=== PATIENT | female | born 1955 | race Caucasian/White ===

== ENCOUNTER 2020-05-25 14:47 | Outpatient (CLI) | payer MEDICARE, SELFPAY ==
--- NOTE | ~2020-05-25 | XR_ITS ---
EXAMINATION: XR abdomen/kub 1V INDICATION: Nephrolithiasis TECHNIQUE: Supine views of the abdomen were obtained on 2 radiographs. COMPARISON: 05/19/2019 FINDINGS: No definite urinary tract calculi are identified. There are phleboliths of the pelvis. The bowel gas pattern is normal. Surgical clips project in the right abdomen. IMPRESSION: 1. No definite urinary tract calculi identified. Reviewed, dictated and finalized at location A.
== END 2020-05-25 14:48 | disposition home or self-care (01) ==
PROVIDERS: PCP Physician Assistant; Visit Provider Physician Assistant
DX: N20.0 Calculus of kidney (principal)
CPT/HCPCS: 74018

== ENCOUNTER 2020-12-11 09:42 | Outpatient (CLI) | payer MEDICARE, SELFPAY ==
--- NOTE | ~2020-12-11 | DEXA_ITS ---
Bone Density Report Name: Jutsine Osborne Age: 65 Sex: Female Ethnicity: White Date of : 1955 Indication: osteopenia; height loss; hysterectomy; Referring Provider: JOSH, ELINA Study: Bone densitometry was performed. Exam Date: December 11, 2020 Accession number: [id number] Bone Density: Region BMD T-score Z-score Classification AP Spine (L1, L2, L4) 0.873 -1.5 0.4 Osteopenia Femoral Neck (Left) 0.708 -1.3 0.4 Osteopenia Total Hip (Left) 0.896 -0.4 1.0 Normal Total Hip Bilateral Avg 0.885 -0.5 0.9 Normal Femoral Neck (Right) 0.654 -1.8 -0.1 Osteopenia Total Hip (Right) 0.873 -0.6 0.8 Normal World Health Organization criteria for BMD impression classify patients as: Normal (T-score at or above -1.0), Osteopenia (T-score between -1.0 and -2.5), or Osteoporosis (T-score at or below -2.5). 10-year Fracture Risk(1): Major Osteoporotic Fracture 9.6% Hip Fracture 1.3% Reported Risk Factors: [place] (), Neck BMD=0.654, BMI=32.7 (1) FRAX(R) Version 3.08. Fracture probability calculated for an untreated patient. Fracture probability may be lower if the patient has received treatment. Previous Exams: Region Exam Age BMD T-score BMD Change BMD Change Date g/cm2 vs Baseline vs Previous AP Spine(L1, L2, L4) 12/11/2020 65 0.873 -1.5 0.047(5.7%)# 0.002(0.2%) 10/05/2016 61 0.871 -1.5 0.045(5.5%)# -0.022(-2.4%)# 12/29/2010 55 0.893 -1.3 0.067(8.1%)* -0.053(-5.6%)* 04/11/2008 52 0.946 -0.8 0.120(14.5%)* 0.058(6.6%)* 02/15/2006 50 0.888 -1.3 0.061(7.4%)* 0.061(7.4%)* 01/28/2004 48 0.826 -1.9 Total Hip(Left) 12/11/2020 65 0.896 -0.4 0.061(7.3%)# 0.006(0.7%) 10/05/2016 61 0.890 -0.4 0.055(6.6%)# 0.035(4.1%)# 12/29/2010 55 0.855 -0.7 0.020(2.4%) -0.003(-0.3%) 04/11/2008 52 0.858 -0.7 0.023(2.7%) 0.016(1.9%) 02/15/2006 50 0.842 -0.8 0.006(0.8%) 0.006(0.8%) 01/28/2004 48 0.835 -0.9 Total Hip(Right) 12/11/2020 65 0.873 -0.6 0.093(12.0%)# 0.041(4.9%)* 10/05/2016 61 0.832 -0.9 0.052(6.7%)# -0.014(-1.6%)# 12/29/2010 55 0.845 -0.8 0.066(8.5%)* 0.010(1.2%) 04/11/2008 52 0.836 -0.9 0.056(7.2%)* 0.024(2.9%) 02/15/2006 50 0.812 -1.1 0.033(4.2%)* 0.033(4.2%)* 01/28/2004 48 0.780 -1.3 *Denotes significance at 95% confidence level, LSC for AP Spine = 0.022 g/cm2, LSC for Total Hip = 0.027 g/cm2 Clinical Information Provided by Patient:
--- NOTE | ~2020-12-11 | MM_ITS ---
EXAMINATION: MM screening [facility] BI w amberly HISTORY: Screening mammogram TECHNIQUE: Craniocaudal and mediolateral oblique 3-D tomosynthesis images were obtained and synthetic 2-D images were generated. CAD analysis was submitted and interpreted. COMPARISON: 11/11/2019, 10/30/2018, 10/24/2017 bilateral digital screening mammogram examinations BREAST PARENCHYMAL COMPOSITION: There are scattered areas of fibroglandular density. FINDINGS: A pacemaker device obscures a portion of the left axillary tail. There is no evidence of pierce spicious mass, calcification, or architectural distortion to suggest malignancy in either breast. The re has been no suspicious interval change. IMPRESSION: 1. No mammographic evidence of malignancy. 2. Recommend routine screening mammography in one year. BI-RADS Category 1: Negative Reviewed, dictated and finalized at location A. OR SVP
== END 2020-12-11 09:43 | disposition home or self-care (01) ==
LOC: ANHIMG 09:49
PROVIDERS: PCP Physician Assistant; Visit Provider Physician Assistant
DX: Z12.31 Encounter for screening mammogram for malignant neoplasm of breast (principal); Z78.0 Asymptomatic menopausal state; M85.88 Other specified disorders of bone density and structure, other site; M85.852 Other specified disorders of bone density and structure, left thigh; M85.851 Other specified disorders of bone density and structure, right thigh
CPT/HCPCS: 77063; 77067; 77080

== ENCOUNTER 2022-05-03 09:32 | Outpatient (CLI) | payer MEDICARE, SELFPAY ==
--- NOTE | ~2022-05-03 | MM_ITS ---
EXAMINATION: MM screening [facility] BI w amberly HISTORY: Screening mammogram TECHNIQUE: Craniocaudal and mediolateral oblique 3-D tomosynthesis images were obtained and synthetic 2-D images were generated. CAD analysis was submitted and interpreted. COMPARISON: 12/11/2020, 11/01/2019, 10/30/2018 BREAST PARENCHYMAL COMPOSITION: There are scattered areas of fibroglandular density. FINDINGS: There is no suspicious mass, calcification, or architectural distortion to suggest malignan cy in either breast. There has been no suspicious interval change. IMPRESSION: 1. No mammographic evidence of malignancy. 2. Recommend routine screening mammography in one year. BI-RADS Category 1: Negative Reviewed, dictated and finalized at location A.
== END 2022-05-03 09:33 | disposition home or self-care (01) ==
LOC: ANHIMG 09:35
PROVIDERS: PCP Physician Assistant; Visit Provider Family Medicine
DX: Z12.31 Encounter for screening mammogram for malignant neoplasm of breast (principal)
CPT/HCPCS: 77063; 77067

== ENCOUNTER 2024-04-16 19:20 | Emergency (ER) | payer MEDICARE, SELFPAY ==
[2024-04-16 19:20] VITALS: BP 107/66; PULSE 74; RESP 18; TEMP 36.7; O2SAT 98
[2024-04-16 19:35] VITALS: BP 99/47; PULSE 72; RESP 29; TEMP 36.6; O2SAT 98
[2024-04-16 19:48] LABS: Basophils Percent Auto 0.4 % (0.2-1.2); Eosinophils Absolute Auto 0.1 K/mm3 (0-0.3); Eosinophils Percent Auto 0.8 % (0-4.4); Hemoglobin 12.2 g/dL (12.0-15.0); Immature Granulocyte Absolute 0.02 K/mm3 (0.00-0.031); Immature Granulocyte Percent A 0.3 % (0-0.5); Lymphocytes Absolute Auto 1.55 K/mm3 (0.9-3.2); Lymphocytes Percent Auto 20.7 % (18.3-44.2); Mean Corpuscular Hemoglobin 31.2 pg (26-34); Mean Corpuscular Volume 94.6 fl (80-100); Mean Platelet Volume 9.6 fl (7.4-10.4); Monocytes Absolute Auto 0.7 K/mm3 (0.1-0.6); Monocytes Percent Auto 9.4 % (2.6-8.5); Neutrophils Absolute Auto 5.1 K/mm3 (1.3-6.7); Neutrophils Percent Auto 68.4 % (45.5-73.1); Platelet Count Result 286 k/mm3 (150-375); Red Blood Count 3.91 M/mm3 (4.2-5.4); Red Cell Distribution Width 11.2 % (11.5-14.5); White Blood Count 7.5 K/mm3 (4.5-10.0)
[2024-04-16 19:58] LABS: Alanine Aminotransferase 35 U/L (6-35); Albumin Level 4.1 g/dL (3.5-5.1); Alkaline Phosphatase 130 U/L (38-126); Anion Gap 9 mmol/L (4-12); Aspartate Amino Transferase 40 U/L (14-36); Bilirubin,Total 1.1 mg/dL (0.2-1.3); Blood Urea Nitrogen 29 mg/dL (7-17); Calcium 10.5 mg/dL (8.4-10.2); Carbon Dioxide 24 mmol/L (22-30); Chloride 104 mmol/L (98-107); Estimated CRCL calculation 39 ml/min; Estimated Glomerular Filt Rate 49; Glucose 159 mg/dL (65-110); Potassium 4.4 mmol/L (3.4-5.0); Sodium 137 mmol/L (137-145)
[2024-04-16 19:58] LABS: Lactic Acid Reflex 1.6 mmol/L (0.7-2.0)
[2024-04-16 19:59] LABS: INR 1.3; Prothrombin Time 16.6 Seconds (11.1-14.7)
[2024-04-16 20:00] LABS: Partial Thromboplastin Time 45.3 Seconds (22.3-36.8)
[2024-04-16 20:36] LABS: Thyroid Stimulating Hormone Reflex < 0.015 uIU/mL (0.465-4.68)
--- NOTE | 2024-04-16 20:48 | ED.RECABL ---
HPI - Recheck/Abnormal Lab/Rx General Chief Complaint: Recheck/Abnormal Lab/Rx Stated Complaint: thyroid issues Time Seen by Provider: 04/16/24 20:13 Source: patient Mode of arrival: ambulatory Limitations: no limitations History of Present Illness HPI narrative: This is a 68-year-old female that presents to the emergency department for abnormal labs. Reports she was seen at another ER last night. She was called this morning when 1 of her lab values came back abnormal. She was instructed by her primary provider to come to the ER for abnormal thyroid function test. Patient reports she has been feeling run down over the last month and has lost weight. Denies chest pain, shortness of breath, abdominal pain, vomiting, dysuria, or hematuria. Related Data Allergies Allergy/AdvReac Type Severity Reaction Status Date / Time MARIE Inhibitors Allergy Unknown PT.STATES Verified 04/16/24 19:24 INSTR.NOT TO TAKE PER DATA POWER CONSULTANT. Review of Systems Review of Systems: CONSTITUTIONAL: Denies fever, CARDIOVASCULAR: Denies chest pain, or edema. RESPIRATORY: Denies dyspnea. GASTROINTESTINAL: Denies abdominal pain, nausea, vomiting GENITOURINARY: Denies dysuria or hematuria. All systems reviewed & are unremarkable except as noted in HPI and below PMFSH Past Medical History Medical History (Updated 04/16/24 @ 23:13 by Rody Cisneros PA-C) History of hyperlipidemia History of hypertension Social History Social History (Updated 04/16/24 @ 20:50 by Rody Cisneros PA-C) Smoking status: Never smoker Exam Narrative: GENERAL: Well-appearing, well-nourished, and in no acute distress. HEAD: Normocephalic, atraumatic. EYES: EOMI. ENT: Nares clear, no rhinorrhea or epistaxis. Mucous membranes moist. Oropharynx without tonsillar hypertrophy exudate or other lesions. NECK: Supple. No adenopathy or masses. No JVD CHEST: Clear to auscultation. No respiratory distress. No wheezes rales or rhonchi HEART: Regular rate and rhythm. No murmur heard. Normal peripheral pulses. ABDOMEN: Soft, nontender, nondistended, normal active bowel sounds. No CVA tenderness EXTREMITIES: Normal range of motion. No edema. SKIN: Warm, dry, no rash. NEURO: No focal deficits. Alert and oriented x3. PSYCH: Normal mood and affect Course Course Emergency Course: Patient updated on her workup and agrees with plan of care Consultations Consultation #1: Spoke with TANA Devlin button sewing machine operator, agrees with further outpatient follow up for abnormal thyroid function tests Date: 04/16/24 Vital Signs Vital signs: Vital Signs Temperature 98.0 F 04/16/24 19:20 Pulse Rate 74 04/16/24 19:20 Respiratory Rate 18 04/16/24 19:20 Blood Pressure 107/66 04/16/24 19:20 Pulse Oximetry 98 04/16/24 19:20 Oxygen Delivery Room Air 04/16/24 19:20 Temperature 98 F 04/16/24 19:35 Pulse Rate 74 04/16/24 22:45 Respiratory Rate 18 04/16/24 22:45 Blood Pressure 94/65 L 04/16/24 22:45 Pulse Oximetry 99 04/16/24 22:45 Oxygen Delivery Room Air 04/16/24 19:20 MDM - Recheck/Abnormal Lab/Rx MDM Narrative Medical decision making narrative: Patient presents to the emergency department for abnormal blood work. Reporting abnormal thyroid function test. She is afebrile and nontoxic appearing. Her vitals are stable. Cbc without concerning findings. Metabolic panel with mild elevation in creatinine 1.1. TSH is low. Free T4 5.16. Urine is normal. Patient was updated on her workup. Spoke with her primary provider on-call who agrees with further outpatient evaluation of abnormal thyroid function tests. She was given warnings to return to the ER Lab Data Attestation: I reviewed the patient's lab results. 04/16/24 19:42 04/16/24 19:42 Labs: Lab Results 04/16/24 04/16/24 04/16/24 Range/Units 19:42 19:43 21:19 WBC 7.5 (4.5-10.0) K/mm3 RBC 3.91 L (4.2-5.4) M/mm3 Hgb 12.2 (
[2024-04-16 21:02] VITALS: BP 120/51; PULSE 62; RESP 26; O2SAT 100
[2024-04-16 21:09] LABS: Free T4 Free Thyroxine Reflex 5.16 ng/dL (0.78-2.19)
[2024-04-16 21:24] LABS: Appearance Urine Clear (Clear); Bilirubin Urine Negative (Negative); Blood Urine Negative (Negative); Color Urine Yellow (Yellow); Glucose Urine UA Negative (Negative); Ketones Urine Negative (Negative); Leukocyte Esterase Ur Negative LEU/UL (Negative); Nitrate Urine Negative (Negative); Protein Urine Negative (Negative); Specific Grav Ur 1.009 (1.001-1.035); Urobilinogen Urine 0.2 mg/dL (<2.0); pH Urine 5.5 (5.0-9.0)
[2024-04-16 21:26] LABS: Add Urine Microscopic? NO
[2024-04-16 22:45] VITALS: BP 94/65; PULSE 74; RESP 18; O2SAT 99
== END 2024-04-16 23:27 | disposition home or self-care (01) ==
PROVIDERS: Emergency Medicine; Emergency Provider Physician Assistant; PCP Physician Assistant
DX: R94.6 Abnormal results of thyroid function studies (principal); E78.5 Hyperlipidemia, unspecified; I10 Essential (primary) hypertension
CPT/HCPCS: 36415; 80053; 81003; 83605; 84439; 84443; 85025; 85610; 85730; 99283

== ENCOUNTER 2025-05-11 11:47 | Outpatient (CLI) | payer MEDICARE, SELFPAY ==
--- NOTE | ~2025-05-11 | XR_ITS ---
Supine and upright views of the abdomen Clinical history: Kidney stone COMPARISON: 05/25/2020 Findings: Bowel gas pattern is nonspecific. No evidence for obstruction or free air. No abnormal mass lesion or calcification is seen. Stable scattered surgical clips in the midabdomen. Osseous structur es are intact. Impression: No definite renal stone seen. Reviewed, dictated and finalized at location . Impression: No definite renal stone seen.
--- OUTSIDE RECORDS SUMMARY | 2025-05-11 13:33 | XMS_ITS | Encounter Summary ---
Author Organization [facility]/Health system Facility Care Team Providers Care Eyeglass Lens Generator Name Role Phone Ryanne Uribe Primary Care Provider [phone] He Elliott DO Unavailable [phone] Sultan Dino Higuera MD Unavailable [phone] Patrice Rivers MD Unavailable [phone] Jaycee Moeller MD Primary Care Provider Encounter Details Date Type Department Care Team (Latest Contact Info) Description 04/19/2016 Orders Only MMG CLINCONV ProviderLindsey MD [facility] [place] [address] Social History Tobacco Use Types Packs/Day Years Used Date Smoking Tobacco: Never Assessed Comments Unknown Sex and Gender Information Value Date Recorded Sex Assigned at Not on file Legal Sex Female 8:53 PM 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 us Historical Provider [facility] CARDI[facility] JARON RODRIGUEZ Final Result documented in this encounter Visit Diagnoses Not on filedocumented in this encounter Care Teams Eyeglass Lens Generator Relationship Specialty Start Date End Date Ryanne Uribe PA [address] [place] [address] PCP - General Internal Medicine 03/10/19 02/07/21 Jaycee Moeller MD [address] [place] [address] PCP - General Family Medicine 02/08/21 He Elliott DO [address] [place] [address] Consulting Physician Gastroenterology 03/28/19 Sultan Dino Higuera MD [address] [facility] [address] [address] [place] [address] As400 Developer Cardiology 03/28/19 Patrice Rivers MD [address] [facility] [address] [place] [address] As400 Developer Cardiology 03/28/19 documented as of this encounter
--- OUTSIDE RECORDS SUMMARY | 2025-05-11 13:33 | XMS_ITS | Encounter Summary ---
Author Organization [facility] Facility Care Team Providers Care Administrative Services Officer Name Role Phone Ryanne Uribe Primary Care Provider [phone] He Elliott DO Unavailable [phone] Sultan Dino Higuera MD Unavailable [phone] Patrice Rivers MD Unavailable [phone] Jaycee Moeller MD Primary Care Provider Encounter Details Date Type Department Care Team (Latest Contact Info) Description 10/23/2016 Orders Only MMG CLINCONV ProviderLindsey MD [facility] [place] [address] Social History Tobacco Use Types Packs/Day Years Used Date Smoking Tobacco: Never Assessed Comments Unknown Sex and Gender Information Value Date Recorded Sex Assigned at Not on file Legal Sex Female 8:53 PM TOP CLEANER Gender Identity Female 06/24/2019 11:05 AM CDT [...] on filedocumented in this encounter Care Teams Administrative Services Officer Relationship Specialty Start Date End Date Ryanne Uribe PA [address] [place] [address] PCP - General Internal Medicine 03/10/19 02/07/21 Jaycee Moeller MD [address] [place] [address] PCP - General Family Medicine 02/08/21 He Elliott DO [address] [place] [address] Consulting Physician Gastroenterology 03/28/19 Sultan Dino Higuera MD [address] [facility] [address] [place] [address] Rn Advanced Cardiology 03/28/19 Patrice Rivers MD [address] [facility] [address] [place] [address] Rn Advanced Cardiology 03/28/19 documented as of this encounter
--- OUTSIDE RECORDS SUMMARY | 2025-05-11 13:33 | XMS_ITS | Encounter Summary ---
Author Organization [facility] Facility Care Team Providers Care Regional Vice President Surgical Sales Name Role Phone Ryanne Uribe Primary Care Provider [phone]- [phone] He Elliott DO Unavailable [phone] Sultan Dino Higuera MD Unavailable [phone] Patrice Rivers MD Unavailable [phone] Jaycee Moeller MD Primary Care Provider Encounter Details Date Type Department Care Team (Latest Contact Info) Description 05/30/2016 Orders Only MMG CLINCONV ProviderLindsey MD [facility] [place] [address] Social History Tobacco Use Types Packs/Day Years Used Date Smoking Tobacco: Never Assessed Comments Unknown Sex and Gender Information Value Date Recorded Sex Assigned at Not on file Legal 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 us Historical Provider [facility] JARON RODRIGUEZ Final Result documented in this encounter Visit Diagnoses Not on filedocumented in this encounter Care Teams Regional Vice President Surgical Sales Relationship Specialty Start Date End Date Ryanne Uribe PA [address] [place] [address] PCP - General Internal Medicine 03/10/19 02/07/21 Jaycee Moeller MD [address] [place] [address] PCP - General Family Medicine 02/08/21 He Elliott DO [address] [place] [address] Consulting Physician Gastroenterology 03/28/19 Sultan Dino Higuera MD [address] [place] [address] Maintenance Department Technician Cardiology 03/28/19 Patrice Rivers MD [address] [place] [address] Maintenance Department Technician Cardiology 03/28/19 documented as of this encounter
--- OUTSIDE RECORDS SUMMARY | 2025-05-11 13:33 | XMS_ITS | Encounter Summary ---
Author Organization [facility] Facility Care Team Providers Care Drop Wire Operator Name Role Phone Ryanne Uribe Primary Care Provider [phone]- [phone] He Elliott DO Unavailable [phone] Sultan Dino Higuera MD Unavailable [phone] Patrice Rivers MD Unavailable [phone] Jaycee Moeller MD Primary Care Provider Encounter Details Date Type Department Care Team (Latest Contact Info) Description 03/11/2017 Orders Only MMG CLINCONV ProviderLindsey MD [facility] [place] [address] Social History Tobacco Use Types Packs/Day Years Used Date Smoking Tobacco: Never Assessed Comments Unknown Sex and Gender Information Value Date Recorded Sex Assigned at Not on file Legal Sex Female 8:53 PM MANAGER ASSET MANAGEMENT Gender Identity Female 06/24/2019 11:05 AM CDT Sexual Orientation Choose not to disclose 2019 2:42 PM CDT documented as of this encounter Plan of Treatment Not on file documented as of this encounter Procedures Procedure Name Priority Date/Time Associated Diagnosis Comments SCAN - LABS 03/12/2017 12:00 AM CDT documented in this encounter Results * SCAN - LABS (03/12/2017 12:00 AM CDT) Narrative 03/12/2017 12:00 AM CDT Ordered by an unspecified provider. us Historical Provider Final Res ult documented in this encounter Visit Diagnoses Not on filedocumented in this encounter Care Teams Drop Wire Operator Relationship Specialty Start Date End Date Ryanne Uribe PA [address] [place] [address] PCP - General Internal Medicine 03/10/19 02/07/21 Jaycee Moeller MD [address] [place] [address] PCP - General Family Medicine 02/08/21 He Elliott DO [address] [place] [address] Consulting Physician Gastroenterology 03/28/19 Sultan Dino Higuera MD [address] [facility] [address] [address] Energy Crop Farmer Cardiology 03/28/19 Patrice Rivers MD [address] [facility] [address] [place] [address] Energy Crop Farmer Cardiology 03/28/19 documented as of this encounter
--- OUTSIDE RECORDS SUMMARY | 2025-05-11 13:33 | XMS_ITS | Encounter Summary ---
Author Organization [facility] Facility Care Team Providers Care Hand Assembler Name Role Phone Ryanne Uribe Primary Care Provider [phone]- [phone] He Elliott DO Unavailable [phone] Sultan Dino Higuera MD Unavailable [phone] Patrice Rivers MD Unavailable [phone] Jaycee Moeller MD Primary Care Provider Encounter Details Date Type Department Care Team (Latest Contact Info) Description 10/08/2016 Orders Only MMG CLINCONV ProviderLindsey MD [facility] [place] [address] Social History Tobacco Use Types Packs/Day Years Used Date Smoking Tobacco: Never Assessed Comments Unknown Sex and Gender Information Value Date Recorded Sex Assigned at Not on file Legal Sex Female 8:53 PM JUNIOR 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 us Historical Provider Final Res ult * CARDIOLOGY REPORT (10/08/2016 12:00 AM JUNIOR STAFF ACCOUNTANT) Anatomical Region Laterality Modality Other Narrative 10/08/2016 12:00 AM JUNIOR STAFF ACCOUNTANT Ordered by an unspecified provider. Historical Provider CV CARDIAC SERVICES PROCE DURES Final Result documented in this encounter Visit Diagnoses Not on filedocumented in this encounter Care Teams Hand Assembler Relationship Specialty Start Date End Date Ryanne Uribe PA [address] [place] [address] PCP - General Internal Medicine 03/10/19 02/07/21 Jaycee Moeller MD [address] [place] [address] PCP - General Family Medicine 02/08/21 He Elliott DO [address] [place] [address] Consulting Physician Gastroenterology 03/28/19 Sultan Dino Higuera MD [address] [facility] [address] [place] [address] Gas Examiner Cardiology 03/28/19 Patrice Rivers MD [address] [facility] [address] [place] [address] Gas Examiner Cardiology 03/28/19 documented as of this encounter
--- OUTSIDE RECORDS SUMMARY | 2025-05-11 13:33 | XMS_ITS | Encounter Summary ---
Author Organization [facility] Facility Care Team Providers Care Cinder Crew Worker Name Role Phone Ryanne Uribe Primary Care Provider [phone]- [phone] He Elliott DO Unavailable [phone] Sultan Dino Higuera MD Unavailable [phone] Patrice Rivers MD Unavailable [phone] Jaycee Moeller MD Primary Care Provider Encounter Details Date Type Department Care Team (Latest Contact Info) Description 04/29/2016 Orders Only [facility]G CLINCONV ProviderLindsey MD [facility] [place] [address] Social History Tobacco Use Types Packs/Day Years Used Date Smoking Tobacco: Never Assessed Comments Unknown Sex and Gender Information Value Date Recorded Sex Assigned at Not on file Legal Sex Female 8:53 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 us Historical Provider Final Res ult documented in this encounter Visit Diagnoses Not on filedocumented in this encounter Care Teams Cinder Crew Worker Relationship Specialty Start Date End Date Ryanne Uribe PA [address] [place] [address] PCP - General Internal Medicine 03/10/19 02/07/21 Jaycee Moeller MD [address] [place] [address] PCP - General Family Medicine 02/08/21 He Elliott DO [address] [place] [address] Consulting Physician Gastroenterology 03/28/19 Sultan Dino Higuera MD [address] [facility] [address] [address] Office Services Representative Cardiology 03/28/19 Patrice Rivers MD [address] [facility] [address] [place] [address] Office Services Representative Cardiology 03/28/19 documented as of this encounter
--- OUTSIDE RECORDS SUMMARY | 2025-05-11 13:33 | XMS_ITS | Encounter Summary ---
Author Organization [facility] Facility Care Team Providers Care Yard Demurrage Clerk Name Role Phone Ryanne Uribe Primary Care Provider +1- [phone] He Elliott DO Unavailable [phone] Sultan Dino Higuera MD Unavailable [phone] Patrice Rivers MD Unavailable [phone] Jaycee Moeller MD Primary Care Provider Encounter Details Date Type Department Care Team (Latest Contact Info) Description 01/07/2017 Orders Only [facility] CLINCONV ProviderLindsey MD [facility] [place] [address] Social History Tobacco Use Types Packs/Day Years Used Date Smoking Tobacco: Never Assessed Comments Unknown Sex and Gender Information Value Date Recorded Sex Assigned at Not on file Legal Sex Female 8:53 PM FILLER WIPER Gender Identity Female 06/24/2019 11:05 AM CDT Sexual Orientation Choose not to disclose 2019 2:42 PM CDT documented as of this encounter Plan of Treatment Not on file documented as of this encounter Procedures Procedure Name Priority Date/Time Associated Diagnosis Comments CARDIOLOGY REPORT 01/07/2017 12: 00 AM FILLER WIPER CARDIOLOGY REPORT 01/07/2017 12: 00 AM FILLER WIPER CARDIOLOGY REPORT 01/07/2017 12: 00 AM FILLER WIPER CARDIOLOGY REPORT 01/07/2017 12: 00 AM FILLER WIPER documented in this encounter Results * CARDIOLOGY REPORT (01/07/2017 12:00 AM FILLER WIPER) Anatomical Region Laterality Modality Other Narrative 01/07/2017 12:00 AM FILLER WIPER Ordered by an unspecified provider. [facility] Provider CV CARDIAC SERVICES PROCE DURES Final Result * CARDIOLOGY REPORT (01/07/2017 12:00 AM FILLER WIPER) Anatomical Region Laterality Modality Other Narrative 01/07/2017 12:00 AM FILLER WIPER Ordered by an unspecified provider. [facility] Provider MD CV CARDIAC SERVICES PROCE DURES Final Result * CARDIOLOGY REPORT (01/07/2017 12:00 AM FILLER WIPER) Anatomical Region Laterality Modality Other Narrative 01/07/2017 12:00 AM FILLER WIPER Ordered by an unspecified provider. [facility] Provider CV CARDIAC SERVICES PROCE DURES Final Result * CARDIOLOGY REPORT (01/07/2017 12:00 AM FILLER WIPER) Anatomical Region Laterality Modality Other Narrative 01/07/2017 12:00 AM FILLER WIPER Ordered by an unspecified provider. [facility] Provider CV CARDIAC SERVICES PROCE DURES Final Result documented in this encounter Visit Diagnoses Not on filedocumented in this encounter Care Teams Yard Demurrage Clerk Relationship Specialty Start Date End Date Ryanne Uribe PA [address] [place] [address] PCP - General Internal Medicine 03/10/19 02/07/21 Jaycee Moeller MD [address] [place] [address] PCP - General Family Medicine 02/08/21 He Elliott DO [address] [place] [address] Consulting Physician Gastroenterology 03/28/19 Sultan Dino Higuera MD [address] [facility] [facility] [address] [place] [address] Personnel Generalist Manager Cardiology 03/28/19 Patrice Rivers MD [address] [facility] [facility] [address] [address] Personnel Generalist Manager Cardiology 03/28/19 documented as of this encounter
--- OUTSIDE RECORDS SUMMARY | 2025-05-11 13:33 | XMS_ITS | Encounter Summary ---
Author Organization [facility] Facility Care Team Providers Care Human Resources Benefits Administrator Name Role Phone Ryanne Uribe Primary Care Provider +1- [phone] He Elliott DO Unavailable [phone] Sultan Dino Higuera MD Unavailable [phone] Patrice Rivers MD Unavailable [phone] Jaycee Moeller MD Primary Care Provider Encounter Details Date Type Department Care Team (Latest Contact Info) Description 07/22/2016 Orders Only [facility] CLINCONV ProviderLindsey MD [facility] [place] [address] Social History Tobacco Use Types Packs/Day Years Used Date Smoking Tobacco: Never Assessed Comments Unknown Sex and Gender Information Value Date Recorded Sex Assigned at Not on file Legal Sex Female 8:53 PM CLARIFICATION OPERATOR Gender Identity Female 06/24/2019 11:05 AM CDT Sexual Orientation Choose not to disclose 2019 2:42 PM CDT documented as of this encounter Plan of Treatment Not on file documented as of this encounter Procedures Procedure Name Priority Date/Time Associated Diagnosis Comments SCAN - LABS 07/22/2016 12:00 AM CDT documented in this encounter Results * SCAN - LABS (07/22/2016 12:00 AM CDT) Narrative 07/22/2016 12:00 AM CDT Ordered by an unspecified provider. us Historical Provider Final Res ult documented in this encounter Visit Diagnoses Not on filedocumented in this encounter Care Teams Human Resources Benefits Administrator Relationship Specialty Start Date End Date Ryanne Uribe PA [address] [place] [address] PCP - General Internal Medicine 03/10/19 02/07/21 Jaycee Moeller MD [address] [place] [address] PCP - General Family Medicine 02/08/21 He Elliott DO [address] [place] [address] Consulting Physician Gastroenterology 03/28/19 Sultan Dino Higuera MD [address] [facility] [address] [address] Defensive Driving Instructor Cardiology 03/28/19 Patrice Rivers MD [address] [facility] [address] [address] [place] [address] Defensive Driving Instructor Cardiology 03/28/19 documented as of this encounter
--- OUTSIDE RECORDS SUMMARY | 2025-05-11 13:33 | XMS_ITS | Encounter Summary ---
Author Organization [facility] Facility Care Team Providers Care Inspector Name Role Phone Ryanne Uribe Primary Care Provider [phone]- [phone] He Elliott DO Unavailable [phone] Sultan Dino Higuera MD Unavailable [phone] Patrice Rivers MD Unavailable [phone] Jaycee Moeller MD Primary Care Provider Encounter Details Date Type Department Care Team (Latest Contact Info) Description 06/25/2016 Orders Only [facility]G CLINCONV ProviderLindsey MD [facility] [place] [address] Social History Tobacco Use Types Packs/Day Years Used Date Smoking Tobacco: Never Assessed Comments Unknown Sex and Gender Information Value Date Recorded Sex Assigned at Not on file Legal Sex Female 8:53 PM COLLECTION SYSTEMS CONSULTANT Gender Identity Female 06/24/2019 11:05 AM CDT Sexual Orientation Choose not to disclose 2019 2:42 PM CDT documented as of this encounter Plan of Treatment Not on file documented as of this encounter Procedures Procedure Name Priority Date/Time Associated Diagnosis Comments CARDIOLOGY REPORT 06/26/2016 12: 00 AM CDT SCAN - LABS 06/25/2016 12:00 AM CDT CARDIOLOGY REPORT 06/25/2016 12: 00 AM CDT CARDIOLOGY REPORT 06/25/2016 12: 00 AM CDT CARDIOLOGY REPORT 06/25/2016 12: 00 AM CDT CARDIOLOGY REPORT 06/25/2016 12: 00 AM CDT documented in this encounter Results * CARDIOLOGY REPORT (06/26/2016 12:00 AM CDT) Anatomical Region Laterality Modality Other Narrative 06/26/2016 12:00 AM CDT Ordered by an unspecified provider. [facility] Provider CV CARDIAC SERVICES PROCE DURES Final Result * SCAN - LABS (06/25/2016 12:00 AM CDT) Narrative 06/25/2016 12:00 AM CDT Ordered by an unspecified provider. [facility] Provider Final Res ult * CARDIOLOGY REPORT (06/25/2016 12:00 AM CDT) Anatomical Region Laterality Modality Other Narrative 06/25/2016 12:00 AM CDT Ordered by an unspecified provider. [facility] Provider CV CARDIAC SERVICES PROCE DURES Final Result * CARDIOLOGY REPORT (06/25/2016 12:00 AM CDT) Anatomical Region Laterality Modality Other Narrative 06/25/2016 12:00 AM CDT Ordered by an unspecified provider. [facility] Provider CV CARDIAC SERVICES PROCE DURES Final Result * CARDIOLOGY REPORT (06/25/2016 12:00 AM CDT) Anatomical Region Laterality Modality Other Narrative 06/25/2016 12:00 AM CDT Ordered by an unspecified provider. [facility] Provider CV CARDIAC SERVICES PROCE DURES Final Result * CARDIOLOGY REPORT (06/25/2016 12:00 AM CDT) Anatomical Region Laterality Modality Other Narrative 06/25/2016 12:00 AM CDT Ordered by an unspecified provider. us Historical Provider CV CARDIAC SERVICES JARON RODRIGUEZ Final Result documented in this encounter Visit Diagnoses Not on filedocumented in this encounter Care Teams Inspector Relationship Specialty Start Date End Date Ryanne Uribe PA [address] [place] [address] PCP - General Internal Medicine 03/10/19 02/07/21 Jaycee Moeller MD [address] [place] [address] PCP - General Family Medicine 02/08/21 He Elliott DO [address] [place] [address] Consulting Physician Gastroenterology 03/28/19 Sultan Dino Higuera MD [address] [place] [address] Sawyer Helper Cardiology 03/28/19 Patrice Rivers MD [address] [place] [address] Sawyer Helper Cardiology 03/28/19 documented as of this encounter
--- OUTSIDE RECORDS SUMMARY | 2025-05-11 13:33 | XMS_ITS | Encounter Summary ---
Author Organization [facility] Facility Care Team Providers Care Family Reunification Specialist Name Role Phone Ryanne Uribe Primary Care Provider [phone]- [phone] He Elliott DO Unavailable [phone] Sultan Dino Higuera MD Unavailable [phone] Patrice Rivers MD Unavailable [phone] Jaycee Moeller MD Primary Care Provider Encounter Details Date Type Department Care Team (Latest Contact Info) Description 01/14/2017 Orders Only [facility] CLINCONV ProviderLindsey MD [facility] [place] [address] Social History Tobacco Use Types Packs/Day Years Used Date Smoking Tobacco: Never Assessed Comments Unknown Sex and Gender Information Value Date Recorded Sex Assigned at Not on file Legal Sex Female 8:53 PM MACHINE OPERATORS Gender Identity Female 06/24/2019 11:05 AM CDT Sexual Orientation Choose not to disclose 2019 2:42 PM CDT documented as of this encounter Plan of Treatment Not on file documented as of this encounter Procedures Procedure Name Priority Date/Time Associated Diagnosis Comments SCAN - LABS 01/14/2017 12:00 AM MACHINE OPERATORS documented in this encounter Results * SCAN - LABS (01/14/2017 12:00 AM MACHINE OPERATORS) Narrative 01/14/2017 12:00 AM MACHINE OPERATORS Ordered by an unspecified provider. us Historical Provider Final Res ult documented in this encounter Visit Diagnoses Not on filedocumented in this encounter Care Teams Family Reunification Specialist Relationship Specialty Start Date End Date Ryanne Uribe PA [address] [place] [address] PCP - General Internal Medicine 03/10/19 02/07/21 Jaycee Moeller MD [address] [place] [address] PCP - General Family Medicine 02/08/21 He Elliott DO [address] [place] [address] Consulting Physician Gastroenterology 03/28/19 Sultan Dino Higuera MD [address] [facility] [address] [place] [address] Salon Customer Experience Specialist Cardiology 03/28/19 Patrice Rivers MD [address] [facility] [address] [place] [address] Salon Customer Experience Specialist Cardiology 03/28/19 documented as of this encounter
--- OUTSIDE RECORDS SUMMARY | 2025-05-11 13:33 | XMS_ITS | Encounter Summary ---
Author Organization [facility] Facility Care Team Providers Care Senior Field Engineer Name Role Phone Ryanne Uribe Primary Care Provider [phone]- [phone] He Elliott DO Unavailable [phone] Sultan Dino Higuera MD Unavailable [phone] Patrice Rivers MD Unavailable [phone] Jaycee Moeller MD Primary Care Provider Encounter Details Date Type Department Care Team (Latest Contact Info) Description 11/22/2016 Orders Only [facility] CLINCONV ProviderLindsey MD [facility] [place] [address] Social History Tobacco Use Types Packs/Day Years Used Date Smoking Tobacco: Never Assessed Comments Unknown Sex and Gender Information Value Date Recorded Sex Assigned at Not on file Legal Sex Female 8:53 PM FRENCH INSTRUCTOR Gender Identity Female 06/24/2019 11:05 AM CDT Sexual Orientation Choose not to disclose 2019 2:42 PM CDT documented as of this encounter Plan of Treatment Not on file documented as of this encounter Procedures Procedure Name Priority Date/Time Associated Diagnosis Comments SCAN - LABS 11/22/2016 12:00 AM FRENCH INSTRUCTOR SCAN - LABS 11/22/2016 12:00 AM FRENCH INSTRUCTOR documented in this encounter Results * SCAN - LABS (11/22/2016 12:00 AM FRENCH INSTRUCTOR) Narrative 11/22/2016 12:00 AM FRENCH INSTRUCTOR Ordered by an unspecified provider. Historical Provider Final Res ult * SCAN - LABS (11/22/2016 12:00 AM FRENCH INSTRUCTOR) Narrative 11/22/2016 12:00 AM FRENCH INSTRUCTOR Ordered by an unspecified provider. Historical Provider Final Res ult documented in this encounter Visit Diagnoses Not on filedocumented in this encounter Care Teams Senior Field Engineer Relationship Specialty Start Date End Date Ryanne Uribe PA [address] [place] [address] PCP - General Internal Medicine 03/10/19 02/07/21 Jaycee Moeller MD [address] [place] [address] PCP - General Family Medicine 02/08/21 He Elliott DO [address] [place] [address] Consulting Physician Gastroenterology 03/28/19 Sultan Dino Higuera MD [address] [facility] [address] [place] [address] Board Mixer Tender Cardiology 03/28/19 Patrice Rivers MD [address] [facility] [address] [place] [address] Board Mixer Tender Cardiology 03/28/19 documented as of this encounter
--- OUTSIDE RECORDS SUMMARY | 2025-05-11 13:33 | XMS_ITS | Encounter Summary ---
Author Organization [facility] Facility Care Team Providers Care Internal Grinding Machine Operator Name Role Phone Ryanne Uribe Primary Care Provider +1- [phone] He Elliott DO Unavailable [phone] Sultan Dino Higuera MD Unavailable [phone] Patrice Rivers MD Unavailable [phone] Jaycee Moeller MD Primary Care Provider Encounter Details Date Type Department Care Team (Latest Contact Info) Description 01/09/2017 Orders Only [facility] CLINCONV ProviderLindsey MD [facility] [place] [address] Social History Tobacco Use Types Packs/Day Years Used Date Smoking Tobacco: Never Assessed Comments Unknown Sex and Gender Information Value Date Recorded Sex Assigned at Not on file Legal Sex Female 8:53 PM MACHINE CHAIN MAKER Gender Identity Female 06/24/2019 11:05 AM CDT Sexual Orientation Choose not to disclose 2019 2:42 PM CDT documented as of this encounter Plan of Treatment Not on file documented as of this encounter Procedures Procedure Name Priority Date/Time Associated Diagnosis Comments CARDIOLOGY REPORT 01/09/2017 12: 00 AM MACHINE CHAIN MAKER documented in this encounter Results * CARDIOLOGY REPORT (01/09/2017 12:00 AM MACHINE CHAIN MAKER) Anatomical Region Laterality Modality Other Narrative 01/09/2017 12:00 AM MACHINE CHAIN MAKER Ordered by an unspecified provider. us Historical Provider CV CARDIAC SERVICES JARON RODRIGUEZ Final Result documented in this encounter Visit Diagnoses Not on filedocumented in this encounter Care Teams Internal Grinding Machine Operator Relationship Specialty Start Date End Date Ryanne Uribe PA [address] [place] [address] PCP - General Internal Medicine 03/10/19 02/07/21 Jaycee Moeller MD [address] [place] [address] PCP - General Family Medicine 02/08/21 He Elliott DO [address] [place] [address] Consulting Physician Gastroenterology 03/28/19 Sultan Dino Higuera MD [address] [facility] [address] [place] [address] Television Presenter Cardiology 03/28/19 Patrice Rivers MD [address] [facility] [address] [place] [address] Television Presenter Cardiology 03/28/19 documented as of this encounter
--- OUTSIDE RECORDS SUMMARY | 2025-05-11 13:33 | XMS_ITS | Encounter Summary ---
Author Organization [facility] Facility Care Team Providers Care Quality Compliance Consultant Name Role Phone Ryanne Uribe Primary Care Provider +1- [phone] He Elliott DO Unavailable [phone] Sultan Dino Higuera MD Unavailable [phone] Patrice Rivers MD Unavailable [phone] Jaycee Moeller MD Primary Care Provider Encounter Details Date Type Department Care Team (Latest Contact Info) Description 06/19/2016 Orders Only [facility] CLINCONV ProviderLindsey MD [facility] [place] [address] Social History Tobacco Use Types Packs/Day Years Used Date Smoking Tobacco: Never Assessed Comments Unknown Sex and Gender Information Value Date Recorded Sex Assigned at Not on file Legal Sex Female 8:53 PM CONFIGURATION MANAGEMENT CONSULTANT Gender Identity Female 06/24/2019 11:05 AM [...] on filedocumented in this encounter Care Teams Quality Compliance Consultant Relationship Specialty Start Date End Date Ryanne Uribe PA [address] [place] [address] PCP - General Internal Medicine 03/10/19 02/07/21 Jaycee Moeller MD [address] [place] [address] PCP - General Family Medicine 02/08/21 He Elliott DO [address] [place] [address] Consulting Physician Gastroenterology 03/28/19 Sultan Dino Higuera MD [address] [facility] [address] [place] [address] Telecom Manager Cardiology 03/28/19 Patrice Rivers MD [address] [facility] [address] [place] [address] Telecom Manager Cardiology 03/28/19 documented as of this encounter
--- OUTSIDE RECORDS SUMMARY | 2025-05-11 13:33 | XMS_ITS | Encounter Summary ---
Author Organization [facility] Facility Care Team Providers Care Fire Extinguisher Repairer Name Role Phone Ryanne Uribe Primary Care Provider [phone]- [phone] He Elliott DO Unavailable [phone] Sultan Dino Higuera MD Unavailable [phone] Patrice Rivers MD Unavailable [phone] Jaycee Moeller MD Primary Care Provider Encounter Details Date Type Department Care Team (Latest Contact Info) Description 10/29/2016 Orders Only MMG CLINCONV ProviderLindsey MD [facility] [place] [address] Social History Tobacco Use Types Packs/Day Years Used Date Smoking Tobacco: Never Assessed Comments Unknown Sex and Gender Information Value Date Recorded Sex Assigned at Not on file Legal Sex Female 8:53 PM IT ARCHITECTURE CONSULTANT Gender Identity Female 06/24/2019 11:05 AM CDT Sexual Orientation Choose not to disclose 2019 2:42 PM CDT documented as of this encounter Plan of Treatment Not on file documented as of this encounter Procedures Procedure Name Priority Date/Time Associated Diagnosis Comments SCAN - LABS 10/29/2016 12:00 AM IT ARCHITECTURE CONSULTANT SCAN - LABS 10/29/2016 12:00 AM IT ARCHITECTURE CONSULTANT documented in this encounter Results * SCAN - LABS (10/29/2016 12:00 AM IT ARCHITECTURE CONSULTANT) Narrative 10/29/2016 12:00 AM IT ARCHITECTURE CONSULTANT Ordered by an unspecified provider. Historical Provider Final Res ult * SCAN - LABS (10/29/2016 12:00 AM IT ARCHITECTURE CONSULTANT) Narrative 10/29/2016 12:00 AM IT ARCHITECTURE CONSULTANT Ordered by an unspecified provider. Historical Provider Final Res ult documented in this encounter Visit Diagnoses Not on filedocumented in this encounter Care Teams Fire Extinguisher Repairer Relationship Specialty Start Date End Date Ryanne Uribe PA [address] [place] [address] PCP - General Internal Medicine 03/10/19 02/07/21 Jaycee Moeller MD [address] [place] [address] PCP - General Family Medicine 02/08/21 He Elliott DO [address] [place] [address] Consulting Physician Gastroenterology 03/28/19 Sultan Dino Higuera MD [address] [facility] [address] [place] [address] Submarine Operator Cardiology 03/28/19 Patrice Rivers MD [address] [facility] [address] [place] [address] Submarine Operator Cardiology 03/28/19 documented as of this encounter
--- OUTSIDE RECORDS SUMMARY | 2025-05-11 13:33 | XMS_ITS | Clinical Summary ---
Author Organization [facility] [facility] Address [address] [place] [address] Care Team Providers Care Infrastructure Analyst Name Role Phone He Elliott DO Unavailable [phone] Sultan Dino Higuera MD Unavailable [phone] Patrice Rivers MD Unavailable [phone] Jaycee Moeller MD Primary Care Provider Allergies Active Allergy Reactions Criticality Noted Date Comments Lisinopril Unknown 03/10/2019 Medications latanoprost (XALATAN) 0.005 % ophthalmic solution Administer 1 drop into both eyes nightly 03/03/20 19 Active cholecalcifero l (VITAMIN D-3) 5,000 unit tablet Take 1 tablet (5,000 Units total) by mouth daily Active polycarbophil (FIBERCON) 625 mg tablet Take 3 tablets (1,875 mg total) by mouth daily Active magnesium oxide 400 mg magnesium capsule Take 1 capsule by mouth daily Active spironolactone (ALDACTONE) 25 mg tabletIndicati ons:chronic heart failure Take 0.5 tablets (12.5 mg total) by mouth daily 45 tablet 3 09/06/20 24 Active Eliquis 5 mg tablet TAKE 1 TABLET BY MOUTH TWICE DAILY 180 tablet 3 10/18/20 24 Active atorvastatin (LIPITOR) 40 mg tablet TAKE 1 TABLET BY MOUTH EVERY NIGHT 90 tablet 1 02/15/20 25 Active carvediloL (COREG) 25 mg tablet TAKE 1 TABLET BY MOUTH TWICE DAILY WITH MEALS 180 tablet 04/13/20 25 Active sacubitriL-luc sartan (Entresto) 49-51 mg tablet TAKE 1 TABLET BY MOUTH TWICE DAILY 180 tablet 04/13/20 25 Active carvediloL (COREG) 25 mg tablet TAKE 1 TABLET BY MOUTH TWICE DAILY WITH MEALS 180 tablet 3 03/15/20 24 025 Discontinued Entresto 49-51 mg tablet TAKE 1 TABLET BY MOUTH TWICE DAILY 180 tablet 3 03/30/20 24 025 Discontinued Active Problems Problem Noted Date Diagnosed Date ICD (implantable cardioverter-defibrillator) in place 07/06/2024 NSVT (nonsustained ventricular tachycardia) 06/24 SVT (supraventricular tachycardia) 07/06/2024 Annual physical exam 07/02/2020 Assessment & Plan (07/02/2020 3:52 PM CDT): Encouraged healthy lifestyle, good nutrition and exercise. Encouraged Calcium and Vitamin D and weight bearing exercise for bone health. Reviewed immunizations Reviewed age appropirate screenings. Breast cancer screening by mammogram 07/02/2020 Assessment & Plan (07/02/2020 3:52 PM CDT): Mammogram order provided Menopause 07/02/2020 Assessment & Plan (07/02/2020 3:52 PM CDT): DXA ordered Stress incontinence of urine 07/02/2020 Assessment & Plan (07/02/2020 3:58 PM CDT): Discussed treatment options. Offered UTI Could try OAB medication vs referrral to UROGYN She wants to monitor right now. BMI 31.0-31.9,adult 05/25/2020 Assessment & Plan (07/02/2020 3:51 PM CDT): Obesity is unchanged. Discussed the patient's BMI. The BMI is above average. BMI management plan is completed. BMI Follow-up includes: nutrition counseling, exercise counseling and education provided. High risk medication use 09/04/2019 Overview (09/04/2019): Coumadin. Managed by Cardio Assessment & Plan (09/04/2019 5:55 PM CDT): Coumadin is managed by clair Obesity (BMI 30-39.9) 08/25/2019 Assessment & Plan (07/02/2020 3:49 PM CDT): Obesity is unchanged. Discussed the patient's BMI. The BMI is above average. BMI management plan is completed. BMI Follow-up includes: nutrition counseling, exercise counseling and education provided. Assessment & Plan (09/04/2019 5:52 PM CDT): Obesity is unchanged. Discussed the patient's BMI. The BMI is above average. BMI management plan is completed. BMI Follow-up includes: nutrition counseling, exercise counseling and education provided. CRD (chronic renal disease), stage III 9 Assessment & Plan (02/07/2021 6:10 PM CDT): Stage 3 kidney disease. See above. Assessment & Plan (08/29/2020 11:48 AM CDT): 2019 BUN 19, creatinine 1.12, GFR 51. Stage 3 kidney disease. Specimen was hemolyzed. Potassium was not done. Potassium repeated today and is 4.6. Assessment & Plan (07/05/2020 3:03 PM CDT): 06/21/2020, the BUN was 18, creatinine 1, potassium 4.8, sodium 142. GFR 59. Stage 3 kidney disease. Assessment & Plan (07/02/2020 3:50 PM CDT): Avoid nephrotoxic drugs including NSAIDs. Monitor labs. Assessment & Plan (05/01/2020 5:57 PM CDT): 09/03/2019 the BUN was 17, creatinine 1.19, GFR 48. Stage 3 kidney disease. Assessment & Plan (10/26/2019 9:31 AM HIM CODER): On 09/02/2019 the BUN was 17, creatinine 1.19, GFR 48, stage 3 kidney disease. Sodium 142, potassium 4.6. Assessment & Plan (09/04/2019 5:57 PM CDT): This is a significant, separately identifiable problem that was evaluated and managed on the same day as the wellness exam Elevated GFR while in house with kidney stones/stent placement. Check labs for stablity Avoid nephrotoxic drugs including NSAIDs. Monitor labs. Assessment & Plan (07/14/2019 5:01 PM CDT): On 06/15/2019 the BUN was 11, creatinine 1.03, potassium 4.5. GFR 57. Stage 3 kidney disease. Nephrolithiasis 03/28/2019 Assessment & Plan (07/02/2020 3:50 PM CDT): History of kidney stones. States was told to check annual KUB. Will order Assessment & Plan (09/04/2019 5:54 PM CDT): Managed by Dr. Choe. Check KUB in the spring Assessment & Plan (03/28/2019 10:03 PM CDT): Check KUB for stability with one kidney and history of stones Avoid nephrotoxic drugs including NSAIDs. Monitor labs. Other fatigue 03/28/2019 Assessment & Plan (07/02/2020 3:52 PM CDT): Probably multifactorial. Check labs and followup to re-evaluate Assessment & Plan (09/04/2019 5:55 PM CDT): Probably multifactorial. Check labs and followup to re-evaluate Assessment & Plan (03/28/2019 10:04 PM CDT): Probably multifactorial. Check labs and followup to re-evaluate Pre-diabetes 03/12/2019 Assessment & Plan (07/02/2020 3:51 PM CDT): Pre-diabetes is a precursor to Dm. Stressed importance of working on diet (decrease your simple sugars and one carbohydrate with each meal) and increase you exercise to achieve weight loss and this will help prevent you from progressing to diabetes. Assessment & Plan (09/04/2019 5:58 PM CDT): This is a significant, separately identifiable problem that was evaluated and managed on the same day as the wellness exam Pre-diabetes is a precursor to Dm. Stressed importance of working on diet (decrease your simple sugars and one carbohydrate with each meal) and increase you exercise to achieve weight loss and this will help prevent you from progressing to diabetes. Dilated cardiomyopathy 03/10/2019 Assessment & Plan (07/10/2021 9:10 AM CDT): AICD. Coreg. Entresto. On 02/02/2021 the ejection fraction was 40-50%. Prior to that on 04/25/2020, it was 30-40%. Assessment & Plan (02/07/2021 6:13 PM CDT): AICD. Coreg. Because of the depressed ejection fraction, the Atacand was discontinued. Escalating doses of the Entresto were started. Echo 02/02/2021, showed an ejection fraction of 40-50%. Slightly improved since 04/25/2021 it was 30- 40%. Mild MR, mild TR, normal right ventricular systolic pressure. Assessment & Plan (08/29/2020 11:50 AM CDT): Nonischemic dilated cardiomyopathy. Lately the ejection fraction has been depressed. Echo 04/25/2020 showed an ejection fraction of 30-40%. The Atacand was discontinued. Started on escalating doses of the Entresto. On 08/07/2020 BUN 19, creatinine 1.2, sodium 143, GFR 51. Potassium 08/29/2020 is 4.6. Stage 3 kidney disease. Tolerating the Entresto 49 -51 b.i.d.. Continue the same dose. Will repeat the echo Doppler in the next few months and will decide if to increase the dose of the Entresto any further. Assessment & Plan (08/15/2020 1:24 PM CDT): Improved on last echo. Continue Entresto and Coreg Assessment & Plan (07/06/2020 11:14 AM CDT): Nonischemic dilated cardiomyopathy. Echo Doppler 04/25/2020 showed an ejection fraction of 30-40%. The Atacand was discontinued. She is now on escalating doses of the Entresto. Tolerating well. Increased the Entresto to 24 -26 , 2 b.i.d.. SMA 7 1 month after that. Assessment & Plan (07/02/2020 3:48 PM CDT): Per Cardiology Assessment & Plan (05/02/2020 10:34 AM CDT): Nonischemic dilated cardiomyopathy. Echo Doppler 04/25/2020 showed an ejection fraction of 30-40%. Moderate left ventricular systolic dysfunction. Ufrn-rj-yjrofrua mitral regurgitation. Trace to mild tricuspid regurgitation. Normal right ventricular systolic pressure. Aldactone. Carvedilol. Discontinue the Atacand. Start Entresto 24-26 half b.i.d.. SMA 7 in 3 weeks. Return in 5 weeks. Will gradually escalate the dose. Assessment & Plan (10/26/2019 9:31 AM HIM CODER): Echo Doppler 12/17/2018 showed an ejection fraction of 50-55%. Moderate mitral regurgitation. Previously on 02/25/2017 the ejection fraction was 40-50%. Carvedilol. Atacand. Aldactone. In between, these medication had to be held because of the renal insufficiency and hyperkalemia due to renal obstructive issues for which she had undergone ureteric stent insertion. Echo Doppler before the next appointment. Assessment & Plan (08/17/2019 1:23 PM CDT): ICD implanted April 2015 primary prevention echocardiogram from November shows resolution. EF 50 55% Assessment & Plan (07/15/2019 8:31 AM CDT): The echo Doppler on 12/17/2018 showed an ejection fraction of 50-55%. Moderate mitral regurgitation. Compared to 02/25/2017 the ejection fraction was 40-50% now 50- 55%. Carvedilol 25 mg p.o. B.i.d.. Atacand and the Aldactone was held recently because of the renal insufficiency and the hyperkalemia due to renal obstructive issues. Had ureteric stents inserted. Those issues have resolved and she has been restarted on Atacand. The SMA 7 on 07/01/2019 looks satisfactory. Restart the Aldactone 25 mg p.o. Daily. SMA 7 and 3 weeks. Cerebrovascular accident (CV A) due to embolism of cerebral artery 03/10/2019 Assessment & Plan (07/09/2021 6:55 PM CDT): Remote embolic CVA. No recurrence. Coumadin. Assessment & Plan (02/07/2021 6:06 PM CDT): Remote embolic CVA. No recurrence. Coumadin. Assessment & Plan (08/26/2020 6:18 PM CDT): Remote embolic CVA. No recurrence. Coumadin. Assessment & Plan (07/05/2020 3:00 PM CDT): Remote. Was embolic. No recurrence. Coumadin. Assessment & Plan (05/02/2020 10:35 AM CDT): Remote. Was embolic. No recurrence. Coumadin. Assessment & Plan (09/04/2019 5:46 PM CDT): No current sxs. Pt on statin and coumadin. 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 Remains on Coumadin Assessment & Plan (07/09/2021 6:55 PM CDT): Resulting in CVA and ischemia of the toes and the digits. Remains on Coumadin Assessment & Plan (02/07/2021 6:16 PM CDT): Resulting in CVA and ischemia of the toes and the digits. Remains on Coumadin Assessment & Plan (08/26/2020 6:17 PM CDT): Resulting in CVA and ischemia of the toes and the digits. Remains on Coumadin Assessment & Plan (07/05/2020 3:00 PM CDT): Resulting in CVA and ischemia of the toes and the digits. Remains on Coumadin Assessment & Plan (07/02/2020 3:40 PM CDT): Resulting in CVA and ischemia of the toes and the digits. Remains on Coumadin Coumadin managed by Cardio Assessment & Plan (05/01/2020 5:51 PM CDT): Resulting in CVA and ischemia of the toes and the digits. Remains on Coumadin. Assessment & Plan (10/25/2019 6:54 PM HIM CODER): Resulting in CVA and ischemia of the toes and the digits. Remains on Coumadin Assessment & Plan (07/14/2019 4:56 PM CDT): Resulting in CVA and ischemia of the toes and the digits. Remains on Coumadin Chronic anticoagulation 03/10/2019 Overview (03/10/2019): Managed by cardio Assessment & Plan (07/10/2021 9:12 AM CDT): Coumadin to prevent systemic embolization from the dilated cardiomyopathy. Assessment & Plan (02/07/2021 6:07 PM CDT): Coumadin because of the previous embolic stroke. Regular INRs. Assessment & Plan (08/26/2020 6:19 PM CDT): Coumadin because of the previous systemic embolization. Monitor INRs. Assessment & Plan (07/02/2020 3:51 PM CDT): Managed by cardio Assessment & Plan (10/25/2019 6:55 PM HIM CODER): On Coumadin because of the history of systemic arterial embolism in the past. Will require anticoagulation indefinitely. Coumadin. Assessment & Plan (09/04/2019 5:54 PM CDT): Managed by cardio Assessment & Plan (08/17/2019 1:15 PM CDT): AFib burden essentially 0%. All episodes less than 1 minute. History of CVA. Continue Coumadin Assessment & Plan (07/15/2019 8:32 AM CDT): On Coumadin because of the history of systemic arterial embolism in the past. Will continue indefinitely. Non-rheumatic mitral regurgitation 03/10/2019 Assessment & Plan (07/09/2021 6:54 PM CDT): Mild to moderate. The last echo showed mild MR. Assessment & Plan (02/07/2021 6:15 PM CDT): Toij-ek-gjvblwre. Last echo showed mild MR. Assessment & Plan (08/26/2020 6:25 PM CDT): Qcfp-[id number]. Assessment & Plan (07/05/2020 3:10 PM CDT): Tzsp-zk-qdgrcywc. Assessment & Plan (07/02/2020 3:49 PM CDT): Continue per cardio Assessment & Plan (05/01/2020 5:52 PM CDT): Ioun-rp-pfkessns. Assessment & Plan (10/25/2019 6:56 PM HIM CODER): Moderate. Related to the dilated cardiomyopathy. Assessment & Plan (07/14/2019 4:56 PM CDT): Moderate. Related to the dilated cardiomyopathy. No need for intervention at this time. 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 Avoid nephrotoxic drugs including NSAIDs. Monitor labs. Assessment & Plan (07/15/2019 8:34 AM CDT): 2000 - had benign Right kidney mass that required complete nephrectomy Mixed hyperlipidemia 03/10/2019 Assessment & Plan (07/09/2021 6:53 PM CDT): Low-fat low-cholesterol diet. Atorvastatin. On 06/21/2020 LDL 51, triglycerides 220.. Assessment & Plan (02/07/2021 6:14 PM CDT): Low-fat low-cholesterol diet. Atorvastatin. On 06/21/2020 triglycerides 220, LDL 51. Assessment & Plan (08/26/2020 6:25 PM CDT): Low-fat low-cholesterol diet. Atorvastatin. Assessment & Plan (08/15/2020 1:24 PM CDT): Continue Lipitor Assessment & Plan (07/05/2020 3:10 PM CDT): Low-fat low-cholesterol diet. Atorvastatin 40 mg bedtime daily . On 04/02/2019 the LDL was 39. Assessment & Plan (07/02/2020 3:51 PM CDT): Encouraged patient to continue low fat/low chol diet. Continue exercise. Increase good fats in the diet. Monitor labs as needed. Continue statin Assessment & Plan (05/01/2020 5:53 PM CDT): Low-fat low-cholesterol diet. Atorvastatin 40 mg bedtime daily. On 04/02/2019 the LDL was 39. Assessment & Plan (10/25/2019 6:57 PM HIM CODER): Low-fat low-cholesterol diet. Atorvastatin 40 mg bedtime daily. On 04/02/2019 the triglycerides 172, total cholesterol 98, HDL 25, LDL 39. Assessment & Plan (09/04/2019 5:54 PM CDT): Encouraged patient to continue low fat/low chol diet. Continue exercise. Increase good fats in the diet. Monitor labs as needed. D Assessment & Plan (07/14/2019 4:58 PM CDT): Low-fat low-cholesterol diet. Atorvastatin 40 mg bedtime daily. On 04/02/2019 the triglycerides were 172, total cholesterol 98, HDL 25, LDL 39. Assessment & Plan (03/28/2019 10:04 PM CDT): Encouraged patient to continue low fat/low chol diet. Continue exercise. Increase good fats in the diet. Monitor labs as needed. Chronic systolic congestive heart failure 2018 Assessment & Plan (07/09/2021 6:51 PM CDT): Salt restriction. Aldactone. No Lasix at this time. On 08/07/2020 potassium 4.6, BUN 19, creatinine 1.12. GFR 51. Stage 3 kidney disease. Assessment & Plan (02/07/2021 6:10 PM CDT): Salt restriction. Aldactone. No Lasix at this time. On 08/07/2020 the BUN was 19, creatinine 1.12, GFR 51. The potassium 08/29/2020 was 4.6. Stage 3 kidney disease. Assessment & Plan (08/26/2020 6:20 PM CDT): Salt restriction. Aldactone. No Lasix at this time. On 06/21/2020 the BUN was 18. Creatinine 1, potassium 4.8, sodium 142. Assessment & Plan (08/15/2020 1:24 PM CDT): Stable. Continue low-salt diet Assessment & Plan (07/06/2020 11:13 AM CDT): Salt restriction. Aldactone. Stable. On 06/21/2020 the BUN was 18, creatinine 1, potassium 4.8, sodium 142. Assessment & Plan (07/02/2020 3:48 PM CDT): Compensation by exam. Continue per Cardio Assessment & Plan (05/02/2020 10:36 AM CDT): Salt restriction. Aldactone. Stable. Assessment & Plan (10/25/2019 6:58 PM HIM CODER): Stable. Salt restriction. Aldactone. Assessment & Plan (09/04/2019 5:52 PM CDT): Managed by cardio Assessment & Plan (08/17/2019 1:23 PM CDT): None at present. Continue current medications Assessment & Plan (07/14/2019 4:59 PM CDT): Stable. Salt restriction. AICD (automatic cardioverter/defibrillator) pres ent 03/10/2019 Assessment & Plan (02/07/2021 6:05 PM CDT): For dilated cardiomyopathy. Assessment & Plan (08/15/2020 1:24 PM CDT): Check today shows normal function. Underlying rhythm sinus 44% a pace no V pacing no AFib excellent lead function. Battery 6 years Assessment & Plan (07/02/2020 3:51 PM CDT): Managed by cardio Assessment & Plan (08/17/2019 1:14 PM CDT): Check today shows normal function. Underlying rhythm sinus bradycardia. A paced 27% no V pacing. Excellent lead function. 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 Assessment & Plan (09/04/2019 5:55 PM CDT): Continue to monitor renal function closely. Hypertensive heart disease w ith chronic systolic congestive heart failure 03/10/2019 Assessment & Plan (07/10/2021 9:11 AM CDT): Salt restriction. Entresto. Carvedilol. Spironolactone. Blood pressure 114/64. Assessment & Plan (08/15/2020 1:23 PM CDT): Blood pressure well controlled. Continue current medicines Assessment & Plan (07/02/2020 3:49 PM CDT): Bp is stable/in acceptable range for any co-morbidities. Encouraged to limit sodium intake and exercise for weight control. Continue per cardio Assessment & Plan (05/02/2020 10:37 AM CDT): Blood pressure 116/60. Salt restriction. Continue the current regimen. Assessment & Plan (10/26/2019 9:29 AM HIM CODER): Blood pressure 112/68. Salt restriction. Continue the current regimen. Assessment & Plan (09/04/2019 5:52 PM CDT): Bp is stable/in acceptable range for any co-morbidities. Encouraged to limit sodium intake and exercise for weight control. Assessment & Plan (07/15/2019 8:34 AM CDT): Blood pressure 120/70. Salt restriction. Continue the current regimen. Glaucoma 03/10/2019 Assessment & Plan (07/02/2020 3:40 PM CDT): Continue per Ohthamology Benign hypertension with CKD (chronic kidney disease) stage III 03/10/2019 Assessment & Plan (02/08/2021 9:43 AM CDT): Salt restriction. Carvedilol. Entresto. Spironolactone. Blood pressure 110/58. Assessment & Plan (08/29/2020 11:46 AM CDT): Blood pressure 106/50. Salt restriction. Continue the current regimen. Assessment & Plan (07/06/2020 11:11 AM CDT): Blood pressure 104/70. Salt restriction. Continue the current regimen. Assessment & Plan (07/02/2020 3:41 PM CDT): Bp is stable/in acceptable range for any co-morbidities. Encouraged to limit sodium intake and exercise for weight control. Continue entresto/aldactone and coreg Managed by Cardio Assessment & Plan (09/04/2019 5:46 PM CDT): Bp is stable/in acceptable range for any co-morbidities. Encouraged to limit sodium intake and exercise for weight control. Assessment & Plan (03/28/2019 10:02 PM CDT): Bp is stable/in acceptable range for any co-morbidities. Encouraged to limit sodium intake and exercise for weight control. Avoid nephrotoxic drugs including NSAIDs. Monitor labs. Resolved Problems Problem Noted Date Diagnosed Date Resolved Date Encounter for screening mamm ogram for malignant neoplasm of breast 09/04/2019 05/25/2020 Assessment & Plan (09/04/2019 5:55 PM CDT): mammogram order provided Medicare annual wellness visit, initial 08/25/2019 05/25/2020 Assessment & Plan (09/04/2019 5:55 PM CDT): Encouraged healthy lifestyle, good nutrition and exercise. Encouraged Calcium and Vitamin D and weight bearing exercise for bone health. Reviewed immunizations Reviewed age appropirate screenings. Documentation is on the chart Breast cancer screening 08/25/2019 070 12/2019 Need for immunization against influenza 08/25/2019 05/25/2020 Assessment & Plan (09/04/2019 5:55 PM CDT): Updated in office today Encounters Date Type Department Care Team Description 04/06/2025 7:00 AM CDT Ancillary Procedure [facility] [address] [place] [address] [address] ICD (implantable cardioverter-defibrill ator), dual, in situ; Dilated cardiomyopathy (HCC) 03/07/2025 Telephone [facility] [address] [place] [address] [address] [place] [address] Sultan Dino Higuera MD Surgical Clearance from Last 3 Months Immunizations Immunization Administration Dates Next Due Influenza, Quadrivalent, Hig h Dose, Preservative Free, Intrr 09/19/2020 Influenza, Quadrivalent, Spl it, Preservative Free, Intramuscular 09/11/2017 Influenza, Trivalent, High D ose, Split, Preservative Free, Intramuscular 08/25/2019,09/10/2018 Pneumococcal Conjugate PCV 13 09/10/2018 Pneumococcal Polysaccharide PPV23 09/16/2019 Surgical History Surgery Date Site/Laterality Comments WISDOM TOOTH EXTRACTION HYSTERECTOMY OVARIAN CYST REMOVAL CARDIAC DEFIBRILLATOR PLACEMENT 04/24/2015 - 05/23/201504/2015 KIDNEY SURGERY Right Medical History Medical History Date Comments Solitary kidney Ureteral calculus left Congestive heart failure (CHF) (HCC) Dilated cardiomyopathy (HCC) CVA (cerebral vascular accident) (HCC) Moderate mitral regurgitation HLD (hyperlipidemia) Systolic congestive heart failure (HCC) Family History Medical History Relation Name Comments Heart attack Father Hypertension Father Congenital heart disease Mother Heart disease Mother Relation Name Status Comments Father Mother Social History Tobacco Use Types Packs/Day Years Used Date Smoking Tobacco: Never Smokeless Tobacco: Never Tobacco Cessation:Counseling Given: Not Answered Alcohol Use Standard Drinks/Week Comments Never 0 (1 standard drink = 0.6 oz pur e alcohol) AUDIT-C Answer Date Recorded Frequency of Alcohol Consumption Never 03/10/2019 Average Number of Drinks Not on file 019 Frequency of Binge Drinking Not on file 02/22 PHQ-2 Answer Date Recorded PHQ-2 Total Score (If total score is 3 or more points, staff should administer the PHQ-9) 0 05/25/2020 Comments Unknown Sex and Gender Information Value Date Recorded Sex Assigned at Not on file Legal Sex Female 8:53 PM HIM CODER Gender Identity Female 06/24/2019 11:05 AM CDT Sexual Orientation Choose not to disclose 2019 2:42 PM CDT 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 Not on file Not on file Obstetrics History Last Filed Vital Signs Vital Sign Reading Time Taken Comments Blood Pressure 122/60 12/06/2024 11:13 AM HIM CODER Pulse 64 12/06/2024 11:13 AM HIM CODER Temperature 36.3 C (97.3 F) 01/10/2022 8:51 AM HIM CODER Respiratory Rate 14 05/25/2020 9:14 AM CDT Oxygen Saturation 97% 12/06/2024 11:13 AM HIM CODER Inhaled Oxygen Concentration - - Weight 81.2 kg (179 lb) 12/06/2024 11:13 AM HIM CODER Height 154.9 cm (5' 1) 02/24/2024 9:38 AM CDT Body Mass Index 33.82 02/24/2024 9:38 AM CDT Plan of Treatment Health Maintenance Due Date Last Done Comments Hepatitis C Screening 1955 DTaP/Tdap/Td Vaccine (1 - Tdap) 1964 Hepatitis B Screening 1971 Zoster Vaccine (1 of 2) 2003 Depression Screening 05/25/2021 05/25/2020, 05/25/2020, 08/25/2019, Additional history exists Fall Risk Assessment 05/25/2021 05/25/2020, 08/25/2019, 03/10/2019 Well Visit 65+ 05/25/2021 05/25/2020, 08/25/2019 Colon Cancer Screening-Colonoscopy 01/11/2023 01/11/2013 Influenza Vaccine (Season Ended) 2025 09/19/2020, 08/25/2019, 09/10/2018, Additional history exists Osteoporosis Screening-Bone Density Scan 10/06/2025 10/06/2023, 12/11/2020, 10/05/2016 Breast Cancer Screening-Mammogram 10/29/2025 10/29/2024, 10/29/2024, 10/06/2023, Additional history exists Colon Cancer Screening-CT Colonography Discontinued 01/11/2013 Colon Cancer Screening-DNA Stool Discontinued 01/11/20 13 Colon Cancer Screening-Sigmoidoscopy Discontinued 01/11/2013 Colon Cancer Screening-FIT Discontinued 04/03/2019, Pneumococcal vaccine 65+ Completed 09/16/2019, 08/24 Procedures Procedure Name Priority Date/Time Associated Diagnosis Comments DEXA AXIAL SKELETON BONE DENSITY 1 OR MORE SITES Schedule Routine, Read Routine (OP Routine) 12/11/2020 Menopause SCREENING MAMMOGRAM BILATERAL W NITIN Schedule Routine, Read Routine (OP Routine) 12/11/2020 Breast cancer screening by mammogram OCCULT BLOOD, FECAL (FIT) Routine 04/03/2019 1:30 PM CDT COLONOSCOPY Routine 01/11/2013 from Last 3 Months or Most Recently Relevant to Health Maintenance Results * Screening Mammogram Bilateral W Nitin (12/11/2020) Anatomical Region Laterality Modality Breast Bilateral Mammography Impressions 12/11/2020 BI- RADS Category 1 : Negative Recommend routine screening mammography in one year. Ryanne ALVARADO IMG MAMMO PROCEDURES Final Result * Dexa Axial Skeleton Bone Density 1 or 2 Site (12/11/2020) SCRIBED DXA T-SCORE -1.5 SCRIBED DXA Z-SCORE -0.1 SCRIBED DXA BMD 0.896 Anatomical Region Laterality Modality Body N/A Radiographic Robyn ging Ryanne ALVARADO IMG DXA PROCEDURES Final R esult * Occult blood, fecal non neoplasm screening (04/03/2019 1:30 PM CDT) Stool Occult Blood NEGATIVE NEGATIVE [facility] 04/03/2019 1:30 PM CDT 04/03/2019 2:20 PM CDT Narrative [facility] - 04/03/2019 8:04 PM CDT Collected By sb Pt had 3 or more type 6-7 stools in less than 24hrs Y Received antibiotics or antineoplastics in past 8 wks N Received laxative,stool softener,enema or tube fdg past 48hr N Received pro-motility medication(s) (i.e. Reglan) N Received bowel prep/had GI procedure or surgery N Displaying signs/symptoms of inflammatory colitis Y Resulting Agency Comment IN us Rufus Day MD LAB BODY FLUIDS AND STOOL S ORDERABLES Final Result [address] [phone] * Colonoscopy (01/11/2013) Anatomical Region Laterality Modality Other Narrative 01/11/2013 Dr. Elliott -- Eugenio. Normal. Repeat 5-10 years Historical Provider ENDOSCOPY PROCEDURES Floridalma l Result from Last 3 Months or Most Recently Relevant to Health Maintenance Insurance [facility] MEDICARE ADVANTAGE [facility] MEDICARE ADVANTAGE Advance Directives For more information, please contact: [phone] Documents on File Type Date Recorded Patient Do All Operator Expl anation ADVANCE DIRECTIVE 04/18/2015 12:00 AM EJ R OF BRIQUETTE MOLDER FINANCIAL/MEDICAL ADVANCE DIRECTIVE 04/18/2015 12:00 AM JHON VILLEGAS [facility] Care Teams Infrastructure Analyst Relationship Specialty Start Date End Date Jaycee Moeller MD [address] [place], [place] [id number] PCP - General Family Medicine 02/08/21 He Elliott DO Consulting Physician Gastroenterology 03/28/19 Sultan Dino Higuera MD [address] [place] [address] Cns Cardiology 03/28/19 Patrice Rivers MD [address] [place] [address] Cns Cardiology 03/28/19
--- OUTSIDE RECORDS SUMMARY | 2025-05-11 13:33 | XMS_ITS | Encounter Summary ---
Author Organization [facility] Facility Care Team Providers Care Engineering Director Name Role Phone Ryanne Uribe Primary Care Provider [phone] He Elliott DO Unavailable [phone] Sultan Dino Higuera MD Unavailable [phone] Patrice Rivers MD Unavailable [phone] Jaycee Moeller MD Primary Care Provider Encounter Details Date Type Department Care Team (Latest Contact Info) Description 04/08/2017 Orders Only MMG CLINCONV ProviderLindsey MD [facility], [facility] [place] [address] Social History Tobacco Use Types Packs/Day Years Used Date Smoking Tobacco: Never Assessed Comments Unknown Sex and Gender Information Value Date Recorded Sex Assigned at Not on file Legal Sex Female 8:53 PM BRIM BLOCKER Gender Identity Female 06/24/2019 11:05 AM CDT Sexual Orientation Choose not to disclose 2019 2:42 PM CDT documented as of this encounter Plan of Treatment Not on file documented as of this encounter Procedures Procedure Name Priority Date/Time Associated Diagnosis Comments SCAN - LABS 04/08/2017 12:00 AM CDT SCAN - LABS 04/08/2017 12:00 AM CDT documented in this encounter Results * SCAN - LABS (04/08/2017 12:00 AM CDT) Narrative 04/08/2017 12:00 AM CDT Ordered by an unspecified provider. us Historical Provider Final Res ult * SCAN - LABS (04/08/2017 12:00 AM CDT) Narrative 04/08/2017 12:00 AM CDT Ordered by an unspecified provider. us Historical Provider Final Res ult documented in this encounter Visit Diagnoses Not on filedocumented in this encounter Care Teams Engineering Director Relationship Specialty Start Date End Date Ryanne Uribe PA [address] [place] [address] PCP - General Internal Medicine 03/10/19 02/07/21 Jaycee Moeller MD [address] [place] [address] PCP - General Family Medicine 02/08/21 He Elliott DO [address] [place] [address] Consulting Physician Gastroenterology 03/28/19 Sultan Dino Higuera MD [address] [place] [address] Railroad Passenger Agent Cardiology 03/28/19 Patrice Rivers MD [address] [place] [address] Railroad Passenger Agent Cardiology 03/28/19 documented as of this encounter
--- OUTSIDE RECORDS SUMMARY | 2025-05-11 13:33 | XMS_ITS | Referral Summary ---
Author Organization [facility] Address [address] [place] [address] Care Team Providers Care Laundry Bag Punch Operator Name Role Phone He Elliott DO Unavailable [phone] Sultan Dino Higuera MD Unavailable [phone] Patrice Rivers MD Unavailable Jaycee Moeller MD Primary Care Provider Encounters Date Type Department Care Team Description 04/06/2025 7:00 AM CDT Ancillary Procedure [facility] [address] [place] [address] ICD (implantable cardioverter-defibrill ator), dual, in situ; Dilated cardiomyopathy (HCC) 03/07/2025 Telephone [facility] [address] [place] [address] [address] [place] [address] Sultan Dino Higuera MD Surgical Clearance from Last 3 Months Allergies Active Allergy Reactions Criticality Noted Date [...] disease. Assessment & Plan (10/26/2019 9:31 AM CONTROL SYSTEMS DRAFTING OFFICER): On 09/02/2019 the BUN was 17, creatinine [...] of 30-40%. Moderate left ventricular systolic dysfunction. Xsfw-aj-wtfrbpne mitral regurgitation. Trace to mild tricuspid regurgitation. Normal right ventricular systolic pressure. Aldactone. Carvedilol. Discontinue the Atacand. Start Entresto 24-26 half b.i.d.. SMA 7 in 3 weeks. Return in 5 weeks. Will gradually escalate the dose. Assessment & Plan (10/26/2019 9:31 AM CONTROL SYSTEMS DRAFTING OFFICER): Echo Doppler 12/17/2018 showed an ejection fraction [...] Coumadin. Assessment & Plan (10/25/2019 6:54 PM CONTROL SYSTEMS DRAFTING OFFICER): Resulting in CVA and ischemia of the [...] cardio Assessment & Plan (10/25/2019 6:55 PM CONTROL SYSTEMS DRAFTING OFFICER): On Coumadin because of the history of [...] Assessment & Plan (02/07/2021 6:15 PM CDT): Htxn-xf-bpmajgku. Last echo showed mild MR. Assessment & Plan (08/26/2020 6:25 PM CDT): Gqtf-xg-pornrsrd. Assessment & Plan (07/05/2020 3:10 PM CDT): Qnie-kn-mdcflras. Assessment & Plan (07/02/2020 3:49 PM CDT): Continue per cardio Assessment & Plan (05/01/2020 5:52 PM CDT): Aylt-xo-jkdtfrat. Assessment & Plan (10/25/2019 6:56 PM CONTROL SYSTEMS DRAFTING OFFICER): Moderate. Related to the dilated cardiomyopathy. Assessment & Plan (07/14/2019 4:56 PM CDT): Moderate. Related to the dilated cardiomyopathy. No need for intervention at this time. 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 Assessment & Plan (10/25/2019 6:57 PM CONTROL SYSTEMS DRAFTING OFFICER): Low-fat low-cholesterol diet. Atorvastatin 40 mg bedtime [...] Stable. Assessment & Plan (10/25/2019 6:58 PM CONTROL SYSTEMS DRAFTING OFFICER): Stable. Salt restriction. Aldactone. Assessment & Plan [...] regimen. Assessment & Plan (10/26/2019 9:29 AM CONTROL SYSTEMS DRAFTING OFFICER): Blood pressure 112/68. Salt restriction. Continue the [...] 5:55 PM CDT): Updated in office today Immunizations Immunization Administration Dates Next Due Influenza, Quadrivalent, Hig h Dose, Preservative Free, Intrr 09/19/2020 Influenza, Quadrivalent, Spl it, Preservative Free, Intramuscular 09/11/2017 Influenza, Trivalent, High D ose, Split, Preservative Free, Intramuscular 08/25/2019,09/10/2018 Pneumococcal Conjugate PCV 13 09/10/2018 Pneumococcal Polysaccharide PPV23 09/16/2019 Social History Tobacco Use Types Packs/Day Years Used Date Smoking Tobacco: Never Smokeless Tobacco: Never Tobacco Cessation:Counseling Given: Not Answered Alcohol Use Standard Drinks/Week Comments Never 0 (1 standard drink = 0.6 oz pur e alcohol) AUDIT-C Answer Date Recorded Frequency of Alcohol Consumption Never 03/10/2019 Average Number of Drinks Not on file 04/17/2 019 Frequency of Binge Drinking Not on file 02/22 PHQ-2 Answer Date Recorded PHQ-2 Total Score (If total score is 3 or more points, staff should administer the PHQ-9) 0 05/25/2020 Comments Unknown Sex and Gender Information Value Date Recorded Sex Assigned at Not on file Legal Sex Female 8:53 PM CONTROL SYSTEMS DRAFTING OFFICER Gender Identity Female 06/24/2019 11:05 AM CDT Sexual Orientation Choose not to disclose 2019 2:42 PM CDT 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 Not on file Not on file Last Filed Vital Signs Vital Sign Reading Time Taken Comments Blood Pressure 122/60 12/06/2024 11:13 AM CONTROL SYSTEMS DRAFTING OFFICER Pulse 64 12/06/2024 11:13 AM CONTROL SYSTEMS DRAFTING OFFICER Temperature 36.3 C (97.3 F) 01/10/2022 8:51 AM CONTROL SYSTEMS DRAFTING OFFICER Respiratory Rate 14 05/25/2020 9:14 AM CDT Oxygen Saturation 97% 12/06/2024 11:13 AM CONTROL SYSTEMS DRAFTING OFFICER Inhaled Oxygen Concentration - - Weight 81.2 kg (179 lb) 12/06/2024 11:13 AM CONTROL SYSTEMS DRAFTING OFFICER Height 154.9 cm (5' 1) 02/24/2024 9:38 AM CDT Body Mass Index 33.82 02/24/2024 9:38 AM CDT Plan of Treatment Not on file Procedures Procedure Name Priority Date/Time Associated Diagnosis [...] Recommend routine screening mammography in one year. us Ryanne AVLARADO IMG MAMMO PROCEDURES Final Result * Dexa Axial Skeleton Bone Density 1 or 2 Site (12/11/2020) SCRIBED DXA T-SCORE -1.5 SCRIBED DXA Z-SCORE -0.1 SCRIBED DXA BMD 0.896 Anatomical Region Laterality Modality Body N/A Radiographic Orbyn ging Ryanne ALVARADO IMG DXA PROCEDURES Final R esult * Occult blood, fecal non neoplasm screening (04/03/2019 1:30 PM CDT) Stool Occult Blood NEGATIVE NEGATIVE [facility] 04/03/2019 1:30 PM CDT 04/03/2019 2:20 PM CDT Narrative [facility] - 04/03/2019 8:04 PM CDT Collected By sb Pt had 3 or more type 6-7 stools in less than 24hrs Y Received antibiotics or antineoplastics in past 8 wks N Received laxative,stool softener,enema or tube fdg past 48hr N Received pro-motility medication(s) (i.e. Reglan) N Received bowel prep/had GI procedure or surgery N Displaying signs/symptoms of inflammatory colitis Y Resulting Agency Comment IN Rufus Day MD LAB BODY FLUIDS AND STOOL S ORDERABLES Final Result Performing Organization Address City/State/[facility] Co de Phone Number [address] [phone] * Colonoscopy (01/11/2013) Anatomical Region Laterality Modality Other Narrative 01/11/2013 Dr. Elliott -- Eugenio. Normal. Repeat 5-10 years Historical Provider ENDOSCOPY PROCEDURES Floridalma l Result from Last 3 Months or Most Recently Relevant to Health Maintenance Insurance [facility] MEDICARE ADVANTAGE [facility] Address: [address] [address] [place] [address] [employer] MEDICARE ADVANTAGE [facility] MEDICARE Address: [address] [address] [place] [address] Advance Directives For more information, please contact: [phone] Documents on File Type Date Recorded Patient Grain Processor Expl anation ADVANCE DIRECTIVE 04/18/2015 12:00 AM EJ R OF INJECTION OPERATOR FINANCIAL/MEDICAL ADVANCE DIRECTIVE 04/18/2015 12:00 AM JHON VILLEGAS [facility] Care Teams Laundry Bag Punch Operator Relationship Specialty Start Date End Date Jaycee Moeller MD [address] [place] [address] PCP - General Family Medicine 02/08/21 eH Elliott DO Consulting Physician Gastroenterology 03/28/19 Sultan Dino Higuera MD [address] [place] [place] [address] Civil Structural Engineer Cardiology 03/28/19 Patrice Rivers MD [address] [place] [address] Civil Structural Engineer Cardiology 03/28/19
--- OUTSIDE RECORDS SUMMARY | 2025-05-11 13:33 | XMS_ITS | Encounter Summary ---
Author Organization [facility] Facility Care Team Providers Care Youth Care Professional Name Role Phone Ryanne Uribe Primary Care Provider [phone]- [phone] He Elliott DO Unavailable [phone] Sultan Dino Higuera MD Unavailable [phone] Patrice Rivers MD Unavailable [phone] Jaycee Moeller MD Primary Care Provider Encounter Details Date Type Department Care Team (Latest Contact Info) Description 05/28/2016 Orders Only [facility]G CLINCONV ProviderLindsey MD [facility] [place] [address] Social History Tobacco Use Types Packs/Day Years Used Date Smoking Tobacco: Never Assessed Comments Unknown Sex and Gender Information Value Date Recorded Sex Assigned at Not on file Legal Sex Female 8:53 PM TAX ADJUSTER Gender Identity Female 06/24/2019 11:05 AM CDT Sexual Orientation Choose not to disclose 2019 2:42 PM CDT documented as of this encounter Plan of Treatment Not on file documented as of this encounter Procedures Procedure Name Priority Date/Time Associated Diagnosis Comments SCAN - LABS 05/29/2016 12:00 AM CDT documented in this encounter Results * SCAN - LABS (05/29/2016 12:00 AM CDT) Narrative 05/29/2016 12:00 AM CDT Ordered by an unspecified provider. us Historical Provider Final Res ult documented in this encounter Visit Diagnoses Not on filedocumented in this encounter Care Teams Youth Care Professional Relationship Specialty Start Date End Date Ryanne Uribe PA [address] [place] [address] PCP - General Internal Medicine 03/10/19 02/07/21 Jaycee Moeller MD [address] [place] [address] PCP - General Family Medicine 02/08/21 He Elliott DO [address] [place] [address] Consulting Physician Gastroenterology 03/28/19 Sultan Dino Higuera MD [address] [facility] [address] [address] Verification Specialist Cardiology 03/28/19 Patrice Rivers MD [address] [facility] [address] [place] [address] Verification Specialist Cardiology 03/28/19 documented as of this encounter
--- OUTSIDE RECORDS SUMMARY | 2025-05-11 13:33 | XMS_ITS | Encounter Summary ---
Author Organization [facility] Facility Care Team Providers Care Benefits Representative Name Role Phone Ryanne Uribe Primary Care Provider [phone]- [phone] He Elliott DO Unavailable [phone] Sultan Dino Higuera MD Unavailable [phone] Patrice Rivers MD Unavailable [phone] Jaycee Moeller MD Primary Care Provider Encounter Details Date Type Department Care Team (Latest Contact Info) Description 10/22/2016 Orders Only MMG CLINCONV ProviderLindsey MD [facility] [place] [address] Social History Tobacco Use Types Packs/Day Years Used Date Smoking Tobacco: Never Assessed Comments Unknown Sex and Gender Information Value Date Recorded Sex Assigned at Not on file Legal Sex Female 8:53 PM SECTION CHIEF Gender Identity Female 06/24/2019 11:05 AM CDT Sexual Orientation Choose not to disclose 2019 2:42 PM CDT documented as of this encounter Plan of Treatment Not on file documented as of this encounter Procedures Procedure Name Priority Date/Time Associated Diagnosis Comments SCAN - LABS 10/22/2016 12:00 AM SECTION CHIEF documented in this encounter Results * SCAN - LABS (10/22/2016 12:00 AM SECTION CHIEF) Narrative 10/22/2016 12:00 AM SECTION CHIEF Ordered by an unspecified provider. us Historical Provider Final Res ult documented in this encounter Visit Diagnoses Not on filedocumented in this encounter Care Teams Benefits Representative Relationship Specialty Start Date End Date Ryanne Uribe PA [address] [place] [address] PCP - General Internal Medicine 03/10/19 02/07/21 Jaycee Moeller MD [address] [place] [address] PCP - General Family Medicine 02/08/21 He Elliott DO [address] [place] [address] Consulting Physician Gastroenterology 03/28/19 Sultan Dino Higuera MD [address] [facility] [address] [place] [address] Truck Safety Inspector Cardiology 03/28/19 Patrice Rivers MD [address] [facility] [address] [facility] [address] [place] [address] Truck Safety Inspector Cardiology 03/28/19 documented as of this encounter
--- OUTSIDE RECORDS SUMMARY | 2025-05-11 13:33 | XMS_ITS | Clinical Summary ---
Author Organization [facility] Address [address] [place] [address] Care Team Providers Care Commercial Construction Estimator Name Role Phone Tangela Gregory MD Primary Care Provider Allergies Active Allergy Reactions Criticality Noted Date Comments Christian Inhibitors Other (see comment) 06/17/2023 Pt does not recall Lisinopril Unknown 03/10/2019 Medications ELIQUIS 5 MG tablet Take 1 tablet (5 mg total) by mouth 2 (two) times daily. 05/08/2023 Active atorvastatin (LIPITOR) 40 MG tablet Take 1 tablet (40 mg total) by mouth nightly at bedtime. 05/28/2023 Active carvedilol (COREG) 25 MG tablet Take 1 tablet (25 mg total) by mouth 2 (two) times daily. 05/08/2023 Active latanoprost (XALATAN) 0.005 % ophthalmic solution Place 1 drop into both eyes nightly at bedtime. 04/03/2023 Active ENTRESTO 49-51 MG tablet Take 1 tablet by mouth 2 (two) times daily. 04/03/2023 Active spironolactone (ALDACTONE) 25 MG tablet Take 1 tablet (25 mg total) by mouth daily. 05/28/2023 Active Magnesium Oxide 400 MG Cap Take 1 capsule by mouth daily. Active Vitamin D3 125 mcg Tab Take 1 tablet (5,000 Units total) by mouth daily. Active polycarbophil (FIBER) 625 MG tablet Take 3 tablets (1,875 mg total) by mouth daily. Active Active Problems Problem Noted Date Diagnosed Date Hx of colonic polyps 03/07/2025 Screening for colon cancer 06/02/2023 Overview (06/02/2023): Added automatically from request for surgery [id number] Presence of cardiac defibrillator 05/01/2015 H/O total hysterectomy 04/29/2003 Congestive heart failure due to cardiomyopathy ([facility]) 12/13/1999 Encounters Date Type Department Care Team Description 05/03/2025 Telephone [facility] General Surgery - [place] [address], [address] [place] [address] Yousif Aquino MD Surgical Clearance 05/02/2025 Travel 03/07/2025 Telephone [facility] General Surgery - [place] [address], [address] [place] [address] Yousif Aquino MD Schedule Surgery 03/07/2025 Prep for Procedure [facility] General Surgery - [place] [address], [address] [place] [address] Yousif Aquino MD from Last 3 Months Family History Medical History Relation Comments NE Brother Hypertension Father NE Father Diabetes Maternal Aunt Diabetes Maternal Grandmother CHF Mother Diabetes Sister 1 Hypertension Sister 2 cardiac defib Sister 3 Relation Status Comments Brother Father Maternal Aunt Maternal Grandmother Mother Sister 1 Sister 2 Alive Sister 3 Alive Social History Tobacco Use Types Packs/Day Years Used Date Smoking Tobacco: Never Smokeless Tobacco: Never Alcohol Use Standard Drinks/Week Comments Never 0 (1 standard drink = 0.6 oz pur e alcohol) Comments No Sex and Gender Information Value Date Recorded Sex Assigned at Not on file Legal Sex Female 6:17 PM CDT Gender Identity Not on file Sexual Orientation Not on file Last Filed Vital Signs Vital Sign Reading Time Taken Comments Blood Pressure 102/58 04/15/2024 4:30 PM CDT Pulse 66 04/15/2024 4:30 PM CDT Temperature 36.4 C (97.6 F) 04/15/2024 3:15 PM CDT Respiratory Rate 18 04/15/2024 4:30 PM CDT Oxygen Saturation 98% 04/15/2024 3:15 PM CDT Inhaled Oxygen Concentration - - Weight 80.3 kg (177 lb) 05/02/2025 1:57 PM CDT Height 156.2 cm (5' 1.5) 05/02/2025 1:57 PM CDT Body Mass Index 32.9 05/02/2025 1:57 PM CDT Plan of Treatment Upcoming Encounters Date Type Department Care Team (Late st Contact Info) Description 05/16/2025 11:24 AM CDT Hospital Encounter [address] [place] [address] Yousif Aquino MD [address] [place] [address] [address] [place] [address] 05/16/2025 11:24 AM CDT - 05/16/2025 11:45 AM CDT Surgery [facility] OR [address] [place] [address] [place] [address] Yousif Aquino MD [address] [place] [address] [address] [place] [address] COLONOSCOPY Scheduled Procedures Name Priority Associated Diagnoses Date/Ti me COLONOSCOPY DIAGNOSTIC WITH/WITHOUT SPECIMEN BRUSH/WASH Screening for colon cancer Hx of colonic polyps 05/16/2025 11:24 AM CDT Health Maintenance Due Date Last Done Comments Hepatitis C 1971 DTaP, Tdap and Td Vaccines (1 - Tdap) 1972 RSV Immunization or 60+ Years (1 - Risk 60-74 years 1-dose series) 2013 Annual Medicare Wellness Visit 2018 COVID-19 Vaccine ( season) 2024 10/15/2021, 01/25/2021, 12/28/2020 PHQ-2 (Physician [place]) 11/24/2024 Mammogram Screening 10/29/2026 10/29/2024, 10/06/2023, 12/11/2020 Colorectal Cancer Screening Colonoscopy (10 Years) 06/24/2033 06/24/2023, 06/24/2023, 06/24/2023, Additional history exists Pneumococcal Vaccine: 50+ Years Completed 09/16/2019, 09/10/2018 Zoster Vaccines Completed 06/18/2021, 03/30/2021 Dexa Scan (General) Completed 10/06/2023, Meningococcal B Vaccine Aged Out No l onger eligible based on patient's age to complete this topic Meningococcal Vaccine Aged Out No deb rufus eligible based on patient's age to complete this topic RSV Immunizations Under 20 Months Aged Out No longer eligible based on patient's age to complete this topic Medical Devices Implanted Type Area Saturation Diver Device Identifier Shelf Expiration Date Model / Serial / Lot Clip Resolution 2.8mm 360 235cm 11mm Open - [id number] Implanted:Qty: 1 on 06/24/2023 by Yousif Aquino MD at [facility] [place] Clip Implant zumatek 01/28/2026 [id number] / / [id number] Clip Resolution 2.8mm 360 235cm 11mm Open - [id number] Implanted:Qty: 2 on 06/24/2023 by Yousif Aquino MD at [facility] [place] Clip Implant zumatek 04/01/2026 [id number] / / [id number] Icd ICD Description:[place] [employer] Procedures Procedure Name Priority Date/Time Associated Diagnosis Comments MG SCREENING W KENDALL SIMI DIGI Routine 10/29/2024 12:32 PM SUPERVISOR TYPE PHOTOGRAPHY Encounter for screening mammogram for malignant neoplasm of breast BONE DENSITY/DEXA Routine 10/06/2023 9:2 0 AM SUPERVISOR TYPE PHOTOGRAPHY Post-menopausal COLONOSCOPY Routine 06/24/2023 10:47 AM CDT from Last 3 Months or Most Recently Relevant to Health Maintenance Results * MG SCREENING W KENDALL SIMI DIGI (10/29/2024 12:32 PM SUPERVISOR TYPE PHOTOGRAPHY) Anatomical Region Laterality Modality Breast Bilateral Mammography 10/29/2024 3:36 PM SUPERVISOR TYPE PHOTOGRAPHY Impressions 10/29/2024 3:39 PM SUPERVISOR TYPE PHOTOGRAPHY ===== IMPRESSION: ===== 1. Stable mammographic appearance with no new findings to suggest malignancy in either breast. Assessment: ACR BI-RADS 2 - BENIGN FINDING(S) Recommendation: 1:Routine Screening Bilateral Comments: Ordered By: TANGELA GREGORY Interpreted By: Mikhail Nicholas, 10/29/2024 3:36 PM Narrative 10/29/2024 3:39 PM SUPERVISOR TYPE PHOTOGRAPHY [address] [place] [address] EXAMINATION: Digital bilateral screening mammogram with 3-D tomosynthesis EXAM DATE/TIME: 10/29/2024 12:14 PM REASON FOR EXAM: Routine screening COMPARISON: 05/03/2022. 10/06/2023 Technique: Digital screening mammography of both breasts was performed in addition to 3-D Tomosynthesis technique. This study was read with the assistance of a computer-aided detection system. Tissue density: There are scattered areas of fibroglandular density. Findings: There is no new focal asymmetry, dominant mass lesion, area of skin thickening, or cluster of suspicious appearing calcifications in either breast to suggest malignancy. Limited visualization of the left axilla and portions of the superior left breast from overlying power pack. us Tangela Gregory MD MAMMO Final Result * BONE DENSITY/DEXA (10/06/2023 9:20 AM SUPERVISOR TYPE PHOTOGRAPHY) Anatomical Region Laterality Modality Bone Other, Computed Tomography 10/09/2023 5:27 AM SUPERVISOR TYPE PHOTOGRAPHY Impressions 10/09/2023 5:29 AM SUPERVISOR TYPE PHOTOGRAPHY IMPRESSION: WHO Classification: osteopenia. Referred By: TANGELA GREGORY Interpreted By: Kirby Peña MD, 10/09/2023 5:27 AM Narrative 10/09/2023 5:29 AM SUPERVISOR TYPE PHOTOGRAPHY Examination: Bone Density Axial Exam Date/Time: 10/06/2023 9:00 AM Reason For Exam: Postmenopausal. Comparison: None Findings: DEXA bone densitometry The bone mineral density (BMD) was determined by dual-energy x-ray absorptiometry, the results are as follows: AP Lumbar Spine L1 through L4 BMD Patient (GM/SQCM): 1.036 T-Score (Standard deviations from young adult peak bone density): -1.2 Right femoral neck: BMD Patient (GM/SQCM): 0.748 T-Score (Standard deviations from young adult peak bone density): -1.9 Total Right femur: BMD Patient (GM/SQCM): 0.881 T-Score (Standard deviations from young adult peak bone density): -1.0 Recommendations: All patients should ensure an adequate intake of dietary calcium and vitamin D. The NOF recommend adults under the age of 50 need 1000 mg of calcium and 400-800 IU of vitamin D daily. Effective therapy for the prevention and treatment of osteoporosis include biphosphonates. Follow-up: People with diagnosed cases of osteoporosis or at high risk for fracture should have regular bone mineral density test. For patients eligible for Medicare, routine testing is allowed once every 2 years. Testing frequency can be increased to one year for patients who have rapidly progressing disease, those who are receiving or discontinuing medical therapy to restore bone mass, or have additional risk factors. Procedure Note Kirby Peña MD - 10/09/2023 Examination: Bone Density Axial Exam Date/Time: 10/06/2023 9:00 AM Reason For Exam: Postmenopausal. Comparison: None Findings: DEXA bone densitometry The bone mineral density (BMD) was determined bydual-energy x-ray absorptiometry, the results are as follows: AP Lumbar Spine L1 through L4 BMD Patient (GM/SQCM): 1.036 T-Score (Standard deviations from young adult peak bonedensity): -1.2 Right femoral neck: BMD Patient (GM/SQCM): 0.748 T-Score (Standard deviations from young adult peak bonedensity): -1.9 Total Right femur: BMD Patient (GM/SQCM): 0.881 T-Score (Standard deviations from young adult peak bonedensity): -1.0 Recommendations: All patients should ensure an adequate intake of dietary calcium andvitamin D. The NOF recommend adults under the age of 50 need 1000 mg ofcalcium and 400-800 IU of vitamin D daily. Effective therapy for theprevention and treatment of osteoporosis include biphosphonates. Follow-up: People with diagnosed cases of osteoporosis or at high risk for fractureshould have regular bone mineral density test. For patients eligible forMedicare, routine testing is allowed once every 2 years. Testing frequencycan be increased to one year for patients who have rapidly progressingdisease, those who are receiving or discontinuing medical therapy torestore bone mass, or have additional risk factors. IMPRESSION: WHO Classification: osteopenia. Referred By: TANGELA GREGORY Interpreted By: Kirby Peña MD, 10/09/2023 5:27 AM Tangela Gregory MD DEXA Final Result from Last 3 Months or Most Recently Relevant to Health [place] [address] Care Teams Commercial Construction Estimator Relationship Specialty Start Date End Date Tangela Gregory MD [address] [place] [address] PCP - General 06/18/23
--- OUTSIDE RECORDS SUMMARY | 2025-05-11 13:33 | XMS_ITS | Encounter Summary ---
Author Organization [facility] Care Team Providers Care Felling Machine Operator Name Role Phone Ryanne Uribe Primary Care Provider [phone] He Elliott DO Unavailable [phone] Sultan Dino Higuera MD Unavailable [phone] Patrice Rivers MD Unavailable [phone] Jaycee Moeller MD Primary Care Provider Encounter Details Date Type Department Care Team (Latest Contact Info) Description 04/09/2016 Orders Only [facility]G CLINCONV ProviderLindsey MD [facility] [place] [address] Social History Tobacco Use Types Packs/Day Years Used Date Smoking Tobacco: Never Assessed Comments Unknown Sex and Gender Information Value Date Recorded Sex Assigned at Not on file Legal Sex Female 8:53 PM NOVELTY CHAIN MAKER Gender Identity Female 06/24/2019 11:05 AM CDT Sexual Orientation Choose not to disclose 2019 2:42 PM CDT documented as of this encounter Plan of Treatment Not on file documented as of this encounter Procedures Procedure Name Priority Date/Time Associated Diagnosis Comments SCAN - LABS 04/09/2016 12:00 AM CDT documented in this encounter Results * SCAN - LABS (04/09/2016 12:00 AM CDT) Narrative 04/09/2016 12:00 AM CDT Ordered by an unspecified provider. us Historical Provider Final Res ult documented in this encounter Visit Diagnoses Not on filedocumented in this encounter Care Teams Felling Machine Operator Relationship Specialty Start Date End Date Ryanne Uribe PA [address] [place] [address] PCP - General Internal Medicine 03/10/19 02/07/21 Jaycee Moeller MD [address] [place] [address] PCP - General Family Medicine 02/08/21 He Elliott DO [address] [place] [address] Consulting Physician Gastroenterology 03/28/19 Sultan Dino Higuera MD [address] [address] Federal Java Developer Cardiology 03/28/19 Patrice Rivers MD [address] [place] [address] Federal Java Developer Cardiology 03/28/19 documented as of this encounter
--- OUTSIDE RECORDS SUMMARY | 2025-05-11 13:33 | XMS_ITS | Encounter Summary ---
Author Organization [facility] Facility Care Team Providers Care Chief Substation Operator Name Role Phone Ryanne Uribe Primary Care Provider [phone] He Elliott DO Unavailable [phone] Dino Higuera MD Unavailable [phone] Patrice Rivers MD Unavailable [phone] Jaycee Moeller MD Primary Care Provider Encounter Details Date Type Department Care Team (Latest Contact Info) Description 04/09/2017 Orders Only [facility]G CLINCONV ProviderLindsey MD [facility] [place] [address] Social History Tobacco Use Types Packs/Day Years Used Date Smoking Tobacco: Never Assessed Comments Unknown Sex and Gender Information Value Date Recorded Sex Assigned at Not on file Legal Sex Female 8:53 PM 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 us Historical Provider [facility] JARON RODRIGUEZ Final Result documented in this encounter Visit Diagnoses Not on filedocumented in this encounter Care Teams Chief Substation Operator Relationship Specialty Start Date End Date Ryanne Uribe PA [address] [place] [address] PCP - General Internal Medicine 03/10/19 02/07/21 Jaycee Moeller MD [address] [place] [address] PCP - General Family Medicine 02/08/21 He Elliott DO [address] [place] [address] Consulting Physician Gastroenterology 03/28/19 Sultan Dino Higuera MD [address] [place] [address] Inclined Railway Operator Cardiology 03/28/19 Patrice Rivers MD [address] [place] [address] Inclined Railway Operator Cardiology 03/28/19 documented as of this encounter
--- OUTSIDE RECORDS SUMMARY | 2025-05-11 13:33 | XMS_ITS | Encounter Summary ---
Author Organization [facility] Facility Care Team Providers Care Masonry Installer Name Role Phone Ryanne Uribe Primary Care Provider [phone]- [phone] He Elliott DO Unavailable [phone] Sultan Dino Higuera MD Unavailable [phone] Patrice Rivers MD Unavailable [phone] Jaycee Moeller MD Primary Care Provider Encounter Details Date Type Department Care Team (Latest Contact Info) Description 2016 Orders Only MMG CLINCONV ProviderLindsey MD [facility] [place] [address] Social History Tobacco Use Types Packs/Day Years Used Date Smoking Tobacco: Never Assessed Comments Unknown Sex and Gender Information Value Date Recorded Sex Assigned at Not on file Legal Sex Female 8:53 PM SITE SURVEYOR Gender Identity Female 06/24/2019 11:05 AM CDT Sexual Orientation Choose not to disclose 2019 2:42 PM CDT documented as of this encounter Plan of Treatment Not on file documented as of this encounter Procedures Procedure Name Priority Date/Time Associated Diagnosis Comments SCAN - LABS 2016 12:00 AM CDT documented in this encounter Results * SCAN - LABS (2016 12:00 AM CDT) Narrative 2016 12:00 AM CDT Ordered by an unspecified provider. us Historical Provider Final Res ult documented in this encounter Visit Diagnoses Not on filedocumented in this encounter Care Teams Masonry Installer Relationship Specialty Start Date End Date Ryanne Uribe PA [address] [place] [address] PCP - General Internal Medicine 03/10/19 02/07/21 Jaycee Moeller MD [address] [place] [address] PCP - General Family Medicine 02/08/21 He Elliott DO [address] [place] [address] Consulting Physician Gastroenterology 03/28/19 Sultan Dino Higuera MD [address] [address] Bakery Deliverer Cardiology 03/28/19 Patrice Rivers MD [address] [place] [address] Bakery Deliverer Cardiology 03/28/19 documented as of this encounter
--- OUTSIDE RECORDS SUMMARY | 2025-05-11 13:33 | XMS_ITS | Encounter Summary ---
Author Organization [facility] Facility Care Team Providers Care Fire Systems Inspector Name Role Phone Ryanne Uribe Primary Care Provider [phone]- [phone] He Elliott DO Unavailable [phone] Sultan Dino Higuera MD Unavailable [phone] Patrice Rivers MD Unavailable [phone] Jaycee Moeller MD Primary Care Provider Encounter Details Date Type Department Care Team (Latest Contact Info) Description 12/17/2016 Orders Only MMG CLINCONV ProviderLindsey MD [facility] [place] [address] Social History Tobacco Use Types Packs/Day Years Used Date Smoking Tobacco: Never Assessed Comments Unknown Sex and Gender Information Value Date Recorded Sex Assigned at Not on file Legal Sex Female 8:53 PM 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 us Historical Provider Final Res ult documented in this encounter Visit Diagnoses Not on filedocumented in this encounter Care Teams Fire Systems Inspector Relationship Specialty Start Date End Date Ryanne Uribe PA [address] [place] [address] PCP - General Internal Medicine 03/10/19 02/07/21 Jaycee Moeller MD [address] [place] [address] PCP - General Family Medicine 02/08/21 He Elliott DO [address] [place] [address] Consulting Physician Gastroenterology 03/28/19 Sultan Dino Higuera MD [address] [facility] [place] [address] Epic Radiant Analyst Cardiology 03/28/19 Patrice Rivers MD [address] [place] [address] Epic Radiant Analyst Cardiology 03/28/19 documented as of this encounter
--- OUTSIDE RECORDS SUMMARY | 2025-05-11 13:34 | XMS_ITS | Encounter Summary ---
Author Organization [facility] Facility Care Team Providers Care Radiologic Technology Teacher Name Role Phone Ryanne Uribe Primary Care Provider [phone] He Elliott DO Unavailable [phone] Sultan Dino Higuera MD Unavailable [phone] Patrice Rivers MD Unavailable [phone] Jaycee Moeller MD Primary Care Provider Encounter Details Date Type Department Care Team (Latest Contact Info) Description 03/07/2017 Orders Only [facility]G CLINCONV ProviderLindsey MD [facility] [place] [address] Social History Tobacco Use Types Packs/Day Years Used Date Smoking Tobacco: Never Assessed Comments Unknown Sex and Gender Information Value Date Recorded Sex Assigned at Not on file Legal Sex Female 8:53 PM LINER 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 us Historical Provider [facility] JARON RODRIGUEZ Final Result documented in this encounter Visit Diagnoses Not on filedocumented in this encounter Care Teams Radiologic Technology Teacher Relationship Specialty Start Date End Date Ryanne Uribe PA [address] [place] [address] PCP - General Internal Medicine 03/10/19 02/07/21 Jaycee Moeller MD [address] [place] [address] PCP - General Family Medicine 02/08/21 He Elliott DO [address] [place] [address] Consulting Physician Gastroenterology 03/28/19 Sultan Dino Higuera MD [address] [facility] [address] [address] [place] [address] Ammonium Sulfate Operator Cardiology 03/28/19 Patrice Rivers MD [address] [address] [place] [address] Ammonium Sulfate Operator Cardiology 03/28/19 documented as of this encounter
--- OUTSIDE RECORDS SUMMARY | 2025-05-11 13:34 | XMS_ITS | Encounter Summary ---
Author Organization [facility] Facility Care Team Providers Care Senior Net Developer Name Role Phone Ryanne Uribe Primary Care Provider +1- [phone] He Elliott DO Unavailable [phone] Sultan Dino Higuera MD Unavailable [phone] Patrice Rivers MD Unavailable [phone] Jaycee Moeller MD Primary Care Provider Encounter Details Date Type Department Care Team (Latest Contact Info) Description 07/15/2017 Orders Only [facility] CLINCONV ProviderLindsey MD [facility] [place] [address] Social History Tobacco Use Types Packs/Day Years Used Date Smoking Tobacco: Never Assessed Comments Unknown Sex and Gender Information Value Date Recorded Sex Assigned at Not on file Legal Sex Female 8:53 PM SAILBOAT CAPTAIN Gender Identity Female 06/24/2019 11:05 AM CDT Sexual Orientation Choose not to disclose 2019 2:42 PM CDT documented as of this encounter Plan of Treatment Not on file documented as of this encounter Procedures Procedure Name Priority Date/Time Associated Diagnosis Comments CARDIOLOGY REPORT 07/15/2017 12: 00 AM CDT CARDIOLOGY REPORT 07/15/2017 12: 00 AM CDT CARDIOLOGY REPORT 07/15/2017 12: 00 AM CDT CARDIOLOGY REPORT 07/15/2017 12: 00 AM CDT CARDIOLOGY REPORT 07/15/2017 12: 00 AM CDT documented in this encounter Results * CARDIOLOGY REPORT (07/15/2017 12:00 AM CDT) Anatomical Region Laterality Modality Other Narrative 07/15/2017 12:00 AM CDT Ordered by an unspecified provider. [facility] Provider CV CARDIAC SERVICES PROCE DURES Final Result * CARDIOLOGY REPORT (07/15/2017 12:00 AM CDT) Anatomical Region Laterality Modality Other Narrative 07/15/2017 12:00 AM CDT Ordered by an unspecified provider. [facility] Provider CV CARDIAC SERVICES PROCE DURES Final Result * CARDIOLOGY REPORT (07/15/2017 12:00 AM CDT) Anatomical Region Laterality Modality Other Narrative 07/15/2017 12:00 AM CDT Ordered by an unspecified provider. [facility] Provider CV CARDIAC SERVICES PROCE DURES Final Result * CARDIOLOGY REPORT (07/15/2017 12:00 AM CDT) Anatomical Region Laterality Modality Other Narrative 07/15/2017 12:00 AM CDT Ordered by an unspecified provider. [facility] Provider CV CARDIAC SERVICES PROCE DURES Final Result * CARDIOLOGY REPORT (07/15/2017 12:00 AM CDT) Anatomical Region Laterality Modality Other Narrative 07/15/2017 12:00 AM CDT Ordered by an unspecified provider. [facility] Provider CV CARDIAC SERVICES PROCE DURES Final Result documented in this encounter Visit Diagnoses Not on filedocumented in this encounter Care Teams Senior Net Developer Relationship Specialty Start Date End Date Ryanne Uribe PA [address] [place] [address] PCP - General Internal Medicine 03/10/19 02/07/21 Jaycee Moeller MD [address] [place] [address] PCP - General Family Medicine 02/08/21 He Elliott DO [address] [facility] [address] [place] [address] Consulting Physician Gastroenterology 03/28/19 Sultan Dino Higuera MD [address] [facility] [address] [address] Deputy Fire Marshal Cardiology 03/28/19 Patrice Rivers MD [address] [facility] [address] [address] Deputy Fire Marshal Cardiology 03/28/19 documented as of this encounter
--- OUTSIDE RECORDS SUMMARY | 2025-05-11 13:34 | XMS_ITS | Encounter Summary ---
Author Organization [facility] Facility Care Team Providers Care Slicing Machine Operator/Tender Name Role Phone Ryanne Uribe Primary Care Provider +1- [phone] He Elliott DO Unavailable [phone] Sultan Dino Higuera MD Unavailable [phone] Patrice Rivers MD Unavailable [phone] Jaycee Moeller MD Primary Care Provider Encounter Details Date Type Department Care Team (Latest Contact Info) Description 08/04/2018 Orders Only [facility] CLINCONV ProviderLindsey MD [facility] [address] Social History Tobacco Use Types Packs/Day Years Used Date Smoking Tobacco: Never Assessed Comments Unknown Sex and Gender Information Value Date Recorded Sex Assigned at Not on file Legal Sex Female 8:53 PM ARCHITECTURAL ENGINEERING TEACHER Gender Identity Female 06/24/2019 11:05 AM CDT Sexual Orientation Choose not to disclose 2019 2:42 PM CDT documented as of this encounter Plan of Treatment Not on file documented as of this encounter Procedures Procedure Name Priority Date/Time Associated Diagnosis Comments CARDIOLOGY REPORT 08/04/2018 12: 00 AM CDT CARDIOLOGY REPORT 08/04/2018 12: 00 AM CDT CARDIOLOGY REPORT 08/04/2018 12: 00 AM CDT documented in this encounter Results * CARDIOLOGY REPORT (08/04/2018 12:00 AM CDT) Anatomical Region Laterality Modality Other Narrative 08/04/2018 12:00 AM CDT Ordered by an unspecified provider. Historical Provider CV CARDIAC SERVICES PROCE DURES Final Result * CARDIOLOGY REPORT (08/04/2018 12:00 AM CDT) Anatomical Region Laterality Modality Other Narrative 08/04/2018 12:00 AM CDT Ordered by an unspecified provider. Historical Provider CV CARDIAC SERVICES PROCE DURES Final Result * CARDIOLOGY REPORT (08/04/2018 12:00 AM CDT) Anatomical Region Laterality Modality Other Narrative 08/04/2018 12:00 AM CDT Ordered by an unspecified provider. [facility] Provider CV CARDIAC SERVICES PROCE DURES Final Result documented in this encounter Visit Diagnoses Not on filedocumented in this encounter Care Teams Slicing Machine Operator/Tender Relationship Specialty Start Date End Date Ryanne Uribe PA [address] [place] [address] PCP - General Internal Medicine 03/10/19 02/07/21 Jaycee Moeller MD [address] [place] [address] PCP - General Family Medicine 02/08/21 He Elliott DO [address] [place] [address] Consulting Physician Gastroenterology 03/28/19 [place] [address] [place] [address] [address] [address] Weeder Cardiology 03/28/19 Patrice Rivers MD [address] [facility] [place] [address] Weeder Cardiology 03/28/19 documented as of this encounter
--- OUTSIDE RECORDS SUMMARY | 2025-05-11 13:34 | XMS_ITS | Encounter Summary ---
Author Organization [facility] Facility Care Team Providers Care Intelligence Operations Specialist Name Role Phone Ryanne Uribe Primary Care Provider +1- [phone] He Elliott DO Unavailable [phone] Sultan Dino Higuera MD Unavailable [phone] Patrice Rivers MD Unavailable [phone] Jaycee Moeller MD Primary Care Provider Encounter Details Date Type Department Care Team (Latest Contact Info) Description 12/17/2017 Orders Only [facility] CLINCONV ProviderLindsey MD [facility] [place] [address] Social History Tobacco Use Types Packs/Day Years Used Date Smoking Tobacco: Never Assessed Comments Unknown Sex and Gender Information Value Date Recorded Sex Assigned at Not on file Legal Sex Female 8:53 PM PLASTICS TOOLING ENGINEER Gender Identity Female 06/24/2019 11:05 AM CDT Sexual Orientation Choose not to disclose 2019 2:42 PM CDT documented as of this encounter Plan of Treatment Not on file documented as of this encounter Procedures Procedure Name Priority Date/Time Associated Diagnosis Comments SCAN - LABS 12/17/2017 12:00 AM PLASTICS TOOLING ENGINEER documented in this encounter Results * SCAN - LABS (12/17/2017 12:00 AM PLASTICS TOOLING ENGINEER) Narrative 12/17/2017 12:00 AM PLASTICS TOOLING ENGINEER Ordered by an unspecified provider. us Historical Provider Final Res ult documented in this encounter Visit Diagnoses Not on filedocumented in this encounter Care Teams Intelligence Operations Specialist Relationship Specialty Start Date End Date Ryanne Uribe PA [address] [place] [address] PCP - General Internal Medicine 03/10/19 02/07/21 Jaycee Moeller MD [address] [place] [address] PCP - General Family Medicine 02/08/21 He Elliott DO [address] [place] [address] Consulting Physician Gastroenterology 03/28/19 Sultan Dino Higuera MD [address] [facility] [address] [place] [address] Parts Department Manager Cardiology 03/28/19 Patrice Rivers MD [address] [facility] [address] [place] [address] Parts Department Manager Cardiology 03/28/19 documented as of this encounter
--- OUTSIDE RECORDS SUMMARY | 2025-05-11 13:34 | XMS_ITS | Encounter Summary ---
Author Organization [facility] Facility Care Team Providers Care Supervisor Instrument Repair Name Role Phone Ryanne Uribe Primary Care Provider +1- [phone] He Elliott DO Unavailable [phone] Sultan Dino Higuera MD Unavailable [phone] Patrice Rivers MD Unavailable [phone] Jaycee Moeller MD Primary Care Provider Encounter Details Date Type Department Care Team (Latest Contact Info) Description 01/19/2018 Orders Only [facility] CLINCONV ProviderLindsey MD [facility] [place] [address] Social History Tobacco Use Types Packs/Day Years Used Date Smoking Tobacco: Never Assessed Comments Unknown Sex and Gender Information Value Date Recorded Sex Assigned at Not on file Legal Sex Female 8:53 PM PROOFER APPRENTICE Gender Identity Female 06/24/2019 11:05 AM CDT Sexual Orientation Choose not to disclose 2019 2:42 PM CDT documented as of this encounter Plan of Treatment Not on file documented as of this encounter Procedures Procedure Name Priority Date/Time Associated Diagnosis Comments SCAN - LABS 01/20/2018 12:00 AM PROOFER APPRENTICE documented in this encounter Results * SCAN - LABS (01/20/2018 12:00 AM PROOFER APPRENTICE) Narrative 01/20/2018 12:00 AM PROOFER APPRENTICE Ordered by an unspecified provider. us Historical Provider Final Res ult documented in this encounter Visit Diagnoses Not on filedocumented in this encounter Care Teams Supervisor Instrument Repair Relationship Specialty Start Date End Date Ryanne Uribe PA [address] [place] [address] PCP - General Internal Medicine 03/10/19 02/07/21 Jaycee Moeller MD [address] [place] [address] PCP - General Family Medicine 02/08/21 He Elliott DO [address] [place] [address] Consulting Physician Gastroenterology 03/28/19 Sultan Dino Higuera MD [address] [facility] [address] [place] [address] Dinkey Dispatcher Cardiology 03/28/19 Patrice Rivers MD [address] [facility] [address] [place] [address] Dinkey Dispatcher Cardiology 03/28/19 documented as of this encounter
--- OUTSIDE RECORDS SUMMARY | 2025-05-11 13:34 | XMS_ITS | Encounter Summary ---
Author Organization [facility] Facility Care Team Providers Care Estate Agent Name Role Phone Ryanne Uribe Primary Care Provider +1- [phone] He Elliott DO Unavailable [phone] Sultan Dino Higuera MD Unavailable [phone] Patrice Rivers MD Unavailable [phone] Jaycee Moeller MD Primary Care Provider Encounter Details Date Type Department Care Team (Latest Contact Info) Description 11/18/2018 Orders Only [facility] CLINCONV ProviderLindsey MD [facility] [place] [address] Social History Tobacco Use Types Packs/Day Years Used Date Smoking Tobacco: Never Assessed Comments Unknown Sex and Gender Information Value Date Recorded Sex Assigned at Not on file Legal Sex Female 8:53 PM DOULA Gender Identity Female 06/24/2019 11:05 AM CDT Sexual Orientation Choose not to disclose 2019 2:42 PM CDT documented as of this encounter Plan of Treatment Not on file documented as of this encounter Procedures Procedure Name Priority Date/Time Associated Diagnosis Comments SCAN - LABS 11/19/2018 12:00 AM DOULA documented in this encounter Results * SCAN - LABS (11/19/2018 12:00 AM DOULA) Narrative 11/19/2018 12:00 AM DOULA Ordered by an unspecified provider. us Historical Provider Final Res ult documented in this encounter Visit Diagnoses Not on filedocumented in this encounter Care Teams Estate Agent Relationship Specialty Start Date End Date Ryanne Uribe PA [address] [place] [address] PCP - General Internal Medicine 03/10/19 02/07/21 Jaycee Moeller MD [address] [place] [address] PCP - General Family Medicine 02/08/21 He Elliott DO [address] [place] [address] Consulting Physician Gastroenterology 03/28/19 Sultan Dino Higuera MD [address] [facility] [address] [place] [address] Shirt Operator Cardiology 03/28/19 Patrice Rivers MD [address] [facility] [address] [place] [address] Shirt Operator Cardiology 03/28/19 documented as of this encounter
--- OUTSIDE RECORDS SUMMARY | 2025-05-11 13:34 | XMS_ITS | Encounter Summary ---
Author Organization [facility] Facility Care Team Providers Care Ndt Inspector Name Role Phone Ryanne Uribe Primary Care Provider +1- [phone] He Elliott DO Unavailable [phone] Sultan Dino Higuera MD Unavailable [phone] Patrice Rivers MD Unavailable [phone] Jaycee Moeller MD Primary Care Provider Encounter Details Date Type Department Care Team (Latest Contact Info) Description 07/30/2017 Orders Only [facility] CLINCONV ProviderLindsey MD [facility] [place] [address] Social History Tobacco Use Types Packs/Day Years Used Date Smoking Tobacco: Never Assessed Comments Unknown Sex and Gender Information Value Date Recorded Sex Assigned at Not on file Legal Sex Female 8:53 PM MARKET SURVEY REPRESENTATIVE Gender Identity Female 06/24/2019 11:05 AM CDT Sexual Orientation Choose not to disclose 2019 2:42 PM CDT documented as of this encounter Plan of Treatment Not on file documented as of this encounter Procedures Procedure Name Priority Date/Time Associated Diagnosis Comments SCAN - LABS 07/30/2017 12:00 AM CDT documented in this encounter Results * SCAN - LABS (07/30/2017 12:00 AM CDT) Narrative 07/30/2017 12:00 AM CDT Ordered by an unspecified provider. us Historical Provider Final Res ult documented in this encounter Visit Diagnoses Not on filedocumented in this encounter Care Teams Ndt Inspector Relationship Specialty Start Date End Date Ryanne Uribe PA [address] [place] [address] PCP - General Internal Medicine 03/10/19 02/07/21 Jaycee Moeller MD [address] [place] [address] PCP - General Family Medicine 02/08/21 He Elliott DO [address] [place] [address] Consulting Physician Gastroenterology 03/28/19 Sultan Dino Higuera MD [address] [facility] [address] [address] Instant Powder Supervisor Cardiology 03/28/19 Patrice Rivers MD [address] [facility] [address] [place] [address] Instant Powder Supervisor Cardiology 03/28/19 documented as of this encounter
--- OUTSIDE RECORDS SUMMARY | 2025-05-11 13:34 | XMS_ITS | Encounter Summary ---
Author Organization [facility] Facility Care Team Providers Care Business Economist Name Role Phone Ryanne Uribe Primary Care Provider +1- [phone] He Elliott DO Unavailable [phone] Sultan Dino Higuera MD Unavailable [phone] Patrice Rivers MD Unavailable [phone] Jaycee Moeller MD Primary Care Provider Encounter Details Date Type Department Care Team (Latest Contact Info) Description 09/12/2017 Orders Only [facility]G CLINCONV ProviderLindsey MD [facility] [place] [address] Social History Tobacco Use Types Packs/Day Years Used Date Smoking Tobacco: Never Assessed Comments Unknown Sex and Gender Information Value Date Recorded Sex Assigned at Not on file Legal Sex Female 8:53 PM MEDICAL BILLING COORDINATOR Gender Identity Female 06/24/2019 11:05 AM CDT Sexual Orientation Choose not to disclose 2019 2:42 PM CDT documented as of this encounter Plan of Treatment Not on file documented as of this encounter Procedures Procedure Name Priority Date/Time Associated Diagnosis Comments SCAN - LABS 09/01/2017 12:00 AM CDT documented in this encounter Results * SCAN - LABS (09/01/2017 12:00 AM CDT) Narrative 09/01/2017 12:00 AM CDT Ordered by an unspecified provider. us Historical Provider Final Res ult documented in this encounter Visit Diagnoses Not on filedocumented in this encounter Care Teams Business Economist Relationship Specialty Start Date End Date Ryanne Uribe PA [address] [place] [address] PCP - General Internal Medicine 03/10/19 02/07/21 Jaycee Moeller MD [address] [place] [address] PCP - General Family Medicine 02/08/21 He Elliott DO [address] [place] [address] Consulting Physician Gastroenterology 03/28/19 Sultan Dino Higuera MD [address] [facility] [address] [address] Collection Agent Cardiology 03/28/19 Patrice Rivers MD [address] [facility] [address] [place] [address] Collection Agent Cardiology 03/28/19 documented as of this encounter
--- OUTSIDE RECORDS SUMMARY | 2025-05-11 13:34 | XMS_ITS | Encounter Summary ---
Author Organization [facility] Facility Care Team Providers Care Water Safety Instructor Name Role Phone Ryanne Uribe Primary Care Provider +1- [phone] He Elliott DO Unavailable [phone] Sultan Dino Higuera MD Unavailable [phone] Patrice Rivers MD Unavailable [phone] Jaycee Moeller MD Primary Care Provider Encounter Details Date Type Department Care Team (Latest Contact Info) Description 02/10/2019 Orders Only [facility]G CLINCONV ProviderLindsey MD [facility] [place] [address] Social History Tobacco Use Types Packs/Day Years Used Date Smoking Tobacco: Never Assessed Comments Unknown Sex and Gender Information Value Date Recorded Sex Assigned at Not on file Legal Sex Female 8:53 PM CLAIM BENEFIT SPECIALIST Gender Identity Female 06/24/2019 11:05 AM CDT Sexual Orientation Choose not to disclose 2019 2:42 PM CDT documented as of this encounter Plan of Treatment Not on file documented as of this encounter Procedures Procedure Name Priority Date/Time Associated Diagnosis Comments SCAN - LABS 02/10/2019 12:00 AM CDT documented in this encounter Results * SCAN - LABS (02/10/2019 12:00 AM CDT) Narrative 02/10/2019 12:00 AM CDT Ordered by an unspecified provider. us Historical Provider Final Res ult documented in this encounter Visit Diagnoses Not on filedocumented in this encounter Care Teams Water Safety Instructor Relationship Specialty Start Date End Date Ryanne Uribe PA [address] [place] [address] PCP - General Internal Medicine 03/10/19 02/07/21 Jaycee Moeller MD [address] [place] [address] PCP - General Family Medicine 02/08/21 He Elliott DO [address] [place] [address] Consulting Physician Gastroenterology 03/28/19 Sultan Dino Higuera MD [address] [facility] [address] [address] First Grade Teacher Cardiology 03/28/19 Patrice Rivers MD [address] [facility] [address] [place] [address] First Grade Teacher Cardiology 03/28/19 documented as of this encounter
--- OUTSIDE RECORDS SUMMARY | 2025-05-11 13:34 | XMS_ITS | Encounter Summary ---
Author Organization [facility] Facility Care Team Providers Care Thermostatic Controls Supervisor Name Role Phone Ryanne Uribe Primary Care Provider +1- [phone] He Elliott DO Unavailable [phone] Sultan Dino Higuera MD Unavailable [phone] Patrice Rivers MD Unavailable [phone] Jaycee Moeller MD Primary Care Provider Encounter Details Date Type Department Care Team (Latest Contact Info) Description 11/04/2018 Orders Only MMG CLINCONV ProviderLindsey MD [facility] [place] [address] Social History Tobacco Use Types Packs/Day Years Used Date Smoking Tobacco: Never Assessed Comments Unknown Sex and Gender Information Value Date Recorded Sex Assigned at Not on file Legal Sex Female 8:53 PM ESTHETICS INSTRUCTOR Gender Identity Female 06/24/2019 11:05 AM CDT Sexual Orientation Choose not to disclose 2019 2:42 PM CDT documented as of this encounter Plan of Treatment Not on file documented as of this encounter Procedures Procedure Name Priority Date/Time Associated Diagnosis Comments CARDIOLOGY REPORT 11/04/2018 12: 00 AM ESTHETICS INSTRUCTOR documented in this encounter Results * CARDIOLOGY REPORT (11/04/2018 12:00 AM ESTHETICS INSTRUCTOR) Anatomical Region Laterality Modality Other Narrative 11/04/2018 12:00 AM ESTHETICS INSTRUCTOR Ordered by an unspecified provider. us Historical Provider CV CARDIAC SERVICES JARON RODRIGUEZ Final Result documented in this encounter Visit Diagnoses Not on filedocumented in this encounter Care Teams Thermostatic Controls Supervisor Relationship Specialty Start Date End Date Ryanne Uribe PA [address] [place] [address] PCP - General Internal Medicine 03/10/19 02/07/21 Jaycee Moeller MD [address] [place] [address] PCP - General Family Medicine 02/08/21 He Elliott DO [address] [place] [address] Consulting Physician Gastroenterology 03/28/19 Sultan Dino Higuera MD [address] [facility] [address] [place] [address] Copper Flotation Operator Cardiology 03/28/19 Patrice Rivers MD [address] [facility] [address] [place] [address] Copper Flotation Operator Cardiology 03/28/19 documented as of this encounter
--- OUTSIDE RECORDS SUMMARY | 2025-05-11 13:34 | XMS_ITS | Encounter Summary ---
Author Organization [facility] Facility Care Team Providers Care Masonry Installer Name Role Phone Ryanne Uribe Primary Care Provider +1- [phone] He Elliott DO Unavailable [phone] Sultan Dino Higuera MD Unavailable [phone] Patrice Rivers MD Unavailable [phone] Jaycee Moeller MD Primary Care Provider Encounter Details Date Type Department Care Team (Latest Contact Info) Description 07/17/2018 Orders Only [facility]G CLINCONV ProviderLindsey MD [facility] [place] [address] Social History Tobacco Use Types Packs/Day Years Used Date Smoking Tobacco: Never Assessed Comments Unknown Sex and Gender Information Value Date Recorded Sex Assigned at Not on file Legal Sex Female 8:53 PM TELLER COORDINATOR Gender Identity Female 06/24/2019 11:05 AM CDT Sexual Orientation Choose not to disclose 2019 2:42 PM CDT documented as of this encounter Plan of Treatment Not on file documented as of this encounter Procedures Procedure Name Priority Date/Time Associated Diagnosis Comments SCAN - LABS 07/17/2018 12:00 AM CDT documented in this encounter Results * SCAN - LABS (07/17/2018 12:00 AM CDT) Narrative 07/17/2018 12:00 AM CDT Ordered by an unspecified provider. us Historical Provider Final Res ult documented in this encounter Visit Diagnoses Not on filedocumented in this encounter Care Teams Masonry Installer Relationship Specialty Start Date End Date Ryanne Uribe PA [address] [place] [address] PCP - General Internal Medicine 03/10/19 02/07/21 Jaycee Moeller MD [address] [place] [address] PCP - General Family Medicine 02/08/21 He Elliott DO [address] [place] [address] Consulting Physician Gastroenterology 03/28/19 Sultan Dino Higuera MD [address] [facility] [address] [address] Atmospheric Physicist Cardiology 03/28/19 Patrice Rivers MD [address] [facility] [address] [place] [address] Atmospheric Physicist Cardiology 03/28/19 documented as of this encounter
--- OUTSIDE RECORDS SUMMARY | 2025-05-11 13:34 | XMS_ITS | Encounter Summary ---
Author Organization [facility] Facility Care Team Providers Care Regional Dedicated Truck Driver Name Role Phone Ryanne Uribe Primary Care Provider +1- [phone] He Elliott DO Unavailable [phone] Sultan Dino Higuera MD Unavailable [phone] Patrice Rivers MD Unavailable [phone] Jaycee Moeller MD Primary Care Provider Encounter Details Date Type Department Care Team (Latest Contact Info) Description 01/19/2019 Orders Only [facility]G CLINCONV ProviderLindsey MD [facility] [place] [address] Social History Tobacco Use Types Packs/Day Years Used Date Smoking Tobacco: Never Assessed Comments Unknown Sex and Gender Information Value Date Recorded Sex Assigned at Not on file Legal Sex Female 8:53 PM BUSINESS AFFAIRS MANAGER Gender Identity Female 06/24/2019 11:05 AM CDT Sexual Orientation Choose not to disclose 2019 2:42 PM CDT documented as of this encounter Plan of Treatment Not on file documented as of this encounter Procedures Procedure Name Priority Date/Time Associated Diagnosis Comments SCAN - LABS 01/20/2019 12:00 AM BUSINESS AFFAIRS MANAGER documented in this encounter Results * SCAN - LABS (01/20/2019 12:00 AM BUSINESS AFFAIRS MANAGER) Narrative 01/20/2019 12:00 AM BUSINESS AFFAIRS MANAGER Ordered by an unspecified provider. us Historical Provider Final Res ult documented in this encounter Visit Diagnoses Not on filedocumented in this encounter Care Teams Regional Dedicated Truck Driver Relationship Specialty Start Date End Date Ryanne Uribe PA [address] [place] [address] PCP - General Internal Medicine 03/10/19 02/07/21 Jaycee Moeller MD [address] [place] [address] PCP - General Family Medicine 02/08/21 He Elliott DO [address] [place] [address] Consulting Physician Gastroenterology 03/28/19 Sultan Dino Higuera MD [address] [facility] [address] [place] [address] Solder Leveler Printed Circuit Boards Cardiology 03/28/19 Patrice Rivers MD [address] [facility] [address] [place] [address] Solder Leveler Printed Circuit Boards Cardiology 03/28/19 documented as of this encounter
--- OUTSIDE RECORDS SUMMARY | 2025-05-11 13:34 | XMS_ITS | Encounter Summary ---
Author Organization [facility] Facility Care Team Providers Care Materials Management Clerk Name Role Phone Ryanne Uribe Primary Care Provider +1- [phone] He Elliott DO Unavailable [phone] Sultan Dino Higuera MD Unavailable [phone] Patrice Rivers MD Unavailable [phone] Jaycee Moeller MD Primary Care Provider Encounter Details Date Type Department Care Team (Latest Contact Info) Description 05/13/2017 Orders Only [facility]G CLINCONV ProviderLindsey MD [facility] [place] [address] Social History Tobacco Use Types Packs/Day Years Used Date Smoking Tobacco: Never Assessed Comments Unknown Sex and Gender Information Value Date Recorded Sex Assigned at Not on file Legal Sex Female 8:53 PM HOUSEKEEPER Gender Identity Female 06/24/2019 11:05 AM CDT Sexual Orientation Choose not to disclose 2019 2:42 PM CDT documented as of this encounter Plan of Treatment Not on file documented as of this encounter Procedures Procedure Name Priority Date/Time Associated Diagnosis Comments SCAN - LABS 05/13/2017 12:00 AM CDT documented in this encounter Results * SCAN - LABS (05/13/2017 12:00 AM CDT) Narrative 05/13/2017 12:00 AM CDT Ordered by an unspecified provider. us Historical Provider Final Res ult documented in this encounter Visit Diagnoses Not on filedocumented in this encounter Care Teams Materials Management Clerk Relationship Specialty Start Date End Date Ryanne Uribe PA [address] [place] [address] PCP - General Internal Medicine 03/10/19 02/07/21 Jaycee Moeller MD [address] [place] [address] PCP - General Family Medicine 02/08/21 He Elliott DO [address] [place] [address] Consulting Physician Gastroenterology 03/28/19 Sultan Dino Higuera MD [address] [facility] [address] [address] Solar Process Engineer Cardiology 03/28/19 Patrice Rivers MD [address] [facility] [address] [place] [address] Solar Process Engineer Cardiology 03/28/19 documented as of this encounter
--- OUTSIDE RECORDS SUMMARY | 2025-05-11 13:34 | XMS_ITS | Encounter Summary ---
Author Organization [facility] Facility Care Team Providers Care Lacquer Sprayer Name Role Phone Ryanne Uribe Primary Care Provider +1- [phone] He Elliott DO Unavailable [phone] Sultan Dino Higuera MD Unavailable [phone] Patrice Rivers MD Unavailable [phone] Jaycee Moeller MD Primary Care Provider Encounter Details Date Type Department Care Team (Latest Contact Info) Description 02/13/2017 Orders Only MMG CLINCONV ProviderLindsey MD [facility] [place] [address] Social History Tobacco Use Types Packs/Day Years Used Date Smoking Tobacco: Never Assessed Comments Unknown Sex and Gender Information Value Date Recorded Sex Assigned at Not on file Legal Sex Female 8:53 PM DIGITAL ARTIST Gender Identity Female 06/24/2019 11:05 AM CDT Sexual Orientation Choose not to disclose 2019 2:42 PM CDT documented as of this encounter Plan of Treatment Not on file documented as of this encounter Procedures Procedure Name Priority Date/Time Associated Diagnosis Comments SCAN - LABS 02/14/2017 12:00 AM CDT documented in this encounter Results * SCAN - LABS (02/14/2017 12:00 AM CDT) Narrative 02/14/2017 12:00 AM CDT Ordered by an unspecified provider. us Historical Provider Final Res ult documented in this encounter Visit Diagnoses Not on filedocumented in this encounter Care Teams Lacquer Sprayer Relationship Specialty Start Date End Date Ryanne Uribe PA [address] [place] [address] PCP - General Internal Medicine 03/10/19 02/07/21 Jaycee Moeller MD [address] [place] [address] PCP - General Family Medicine 02/08/21 He Elliott DO [address] [place] [address] Consulting Physician Gastroenterology 03/28/19 Sultan Dino Higuera MD [address] [facility] [address] [address] Computerized Mill Mill Recorder Cardiology 03/28/19 Patrice Rivers MD [address] [facility] [place] [address] Computerized Mill Mill Recorder Cardiology 03/28/19 documented as of this encounter
--- OUTSIDE RECORDS SUMMARY | 2025-05-11 13:34 | XMS_ITS | Encounter Summary ---
Author Organization [facility] Facility Care Team Providers Care Wrapper Layer And Examiner Soft Work Name Role Phone Ryanne Uribe Primary Care Provider +1- [phone] He Elliott DO Unavailable [phone] Sultan Dino Higuera MD Unavailable [phone] Patrice Rivers MD Unavailable [phone] Jaycee Moeller MD Primary Care Provider Encounter Details Date Type Department Care Team (Latest Contact Info) Description 05/20/2017 Orders Only [facility]G CLINCONV ProviderLindsey MD [facility] [place] [address] Social History Tobacco Use Types Packs/Day Years Used Date Smoking Tobacco: Never Assessed Comments Unknown Sex and Gender Information Value Date Recorded Sex Assigned at Not on file Legal Sex Female 8:53 PM LOCK EXPERT Gender Identity Female 06/24/2019 11:05 AM CDT Sexual Orientation Choose not to disclose 2019 2:42 PM CDT documented as of this encounter Plan of Treatment Not on file documented as of this encounter Procedures Procedure Name Priority Date/Time Associated Diagnosis Comments SCAN - LABS 05/20/2017 12:00 AM CDT documented in this encounter Results * SCAN - LABS (05/20/2017 12:00 AM CDT) Narrative 05/20/2017 12:00 AM CDT Ordered by an unspecified provider. us Historical Provider Final Res ult documented in this encounter Visit Diagnoses Not on filedocumented in this encounter Care Teams Wrapper Layer And Examiner Soft Work Relationship Specialty Start Date End Date Ryanne Uribe PA [address] [place] [address] PCP - General Internal Medicine 03/10/19 02/07/21 Jaycee Moeller MD [address] [place] [address] PCP - General Family Medicine 02/08/21 He Elliott DO [address] [place] [address] Consulting Physician Gastroenterology 03/28/19 Sultan Dino Higuera MD [address] [facility] [address] [address] Fitter And Turner Cardiology 03/28/19 Patrice Rivers MD [address] [facility] [address] [place] [address] Fitter And Turner Cardiology 03/28/19 documented as of this encounter
--- OUTSIDE RECORDS SUMMARY | 2025-05-11 13:34 | XMS_ITS | Encounter Summary ---
Author Organization [facility] Facility Care Team Providers Care Environmental Safety Specialist Name Role Phone Ryanne Uribe Primary Care Provider +1- [phone] He Elliott DO Unavailable [phone] Sultan Dino Higuera MD Unavailable [phone] Patrice Rivers MD Unavailable [phone] Jaycee Moeller MD Primary Care Provider Encounter Details Date Type Department Care Team (Latest Contact Info) Description 02/10/2018 Orders Only MMG CLINCONV ProviderLindsey MD [facility] [place] [address] Social History Tobacco Use Types Packs/Day Years Used Date Smoking Tobacco: Never Assessed Comments Unknown Sex and Gender Information Value Date Recorded Sex Assigned at Not on file Legal Sex Female 8:53 PM TONGUE AND QUARTER STITCHER Gender Identity Female 06/24/2019 11:05 AM CDT Sexual Orientation Choose not to disclose 2019 2:42 PM CDT documented as of this encounter Plan of Treatment Not on file documented as of this encounter Procedures Procedure Name Priority Date/Time Associated Diagnosis Comments CARDIOLOGY REPORT 02/10/2018 12: 00 AM CDT CARDIOLOGY REPORT 02/10/2018 12: 00 AM CDT CARDIOLOGY REPORT 02/10/2018 12: 00 AM CDT documented in this encounter Results * CARDIOLOGY REPORT (02/10/2018 12:00 AM CDT) Anatomical Region Laterality Modality Other Narrative 02/10/2018 12:00 AM CDT Ordered by an unspecified provider. Historical Provider CV CARDIAC SERVICES PROCE DURES Final Result * CARDIOLOGY REPORT (02/10/2018 12:00 AM CDT) Anatomical Region Laterality Modality Other Narrative 02/10/2018 12:00 AM CDT Ordered by an unspecified provider. Historical Provider CV CARDIAC SERVICES PROCE DURES Final Result * CARDIOLOGY REPORT (02/10/2018 12:00 AM CDT) Anatomical Region Laterality Modality Other Narrative 02/10/2018 12:00 AM CDT Ordered by an unspecified provider. [facility] Provider CV CARDIAC SERVICES PROCE DURES Final Result documented in this encounter Visit Diagnoses Not on filedocumented in this encounter Care Teams Environmental Safety Specialist Relationship Specialty Start Date End Date Ryanne Uribe PA [address] [place] [address] PCP - General Internal Medicine 03/10/19 02/07/21 Jaycee Moeller MD [address] [place] [address] PCP - General Family Medicine 02/08/21 He Elliott DO [address] [place] [address] Consulting Physician Gastroenterology 03/28/19 [place] [address] [place] [address] [address] [address] Air Support Operations Operator Cardiology 03/28/19 Patrice Rivers MD [address] [facility] [place] [facility] [place] [address] Air Support Operations Operator Cardiology 03/28/19 documented as of this encounter
--- OUTSIDE RECORDS SUMMARY | 2025-05-11 13:34 | XMS_ITS | Encounter Summary ---
Author Organization [facility] Facility Care Team Providers Care Lean Process Deployment Consultant Name Role Phone Ryanne Uribe Primary Care Provider +1- [phone] He Elliott DO Unavailable [phone] Sultan Dino Higuera MD Unavailable [phone] Patrice Rivers MD Unavailable [phone] Jaycee Moeller MD Primary Care Provider Encounter Details Date Type Department Care Team (Latest Contact Info) Description 12/17/2018 Orders Only [facility]G CLINCONV ProviderLindsey MD [facility] [place] [address] Social History Tobacco Use Types Packs/Day Years Used Date Smoking Tobacco: Never Assessed Comments Unknown Sex and Gender Information Value Date Recorded Sex Assigned at Not on file Legal Sex Female 8:53 PM SEXUAL HEALTH PHYSICIAN Gender Identity Female 06/24/2019 11:05 AM CDT Sexual Orientation Choose not to disclose 2019 2:42 PM CDT documented as of this encounter Plan of Treatment Not on file documented as of this encounter Procedures Procedure Name Priority Date/Time Associated Diagnosis Comments CARDIOLOGY REPORT 12/21/2018 12: 00 AM SEXUAL HEALTH PHYSICIAN documented in this encounter Results * CARDIOLOGY REPORT (12/21/2018 12:00 AM SEXUAL HEALTH PHYSICIAN) Anatomical Region Laterality Modality Other Narrative 12/21/2018 12:00 AM SEXUAL HEALTH PHYSICIAN Ordered by an unspecified provider. us Historical Provider CV CARDIAC SERVICES JARON RODRIGUEZ Final Result documented in this encounter Visit Diagnoses Not on filedocumented in this encounter Care Teams Lean Process Deployment Consultant Relationship Specialty Start Date End Date Ryanne Uribe PA [address] [place] [address] PCP - General Internal Medicine 03/10/19 02/07/21 Jaycee Moeller MD [address] [place] [address] PCP - General Family Medicine 02/08/21 He Elliott DO [address] [place] [address] Consulting Physician Gastroenterology 03/28/19 Sultan Dino Higuera MD [address] [facility] [address] [place] [address] Clinical Informatics Physician Cardiology 03/28/19 Patrice Rivers MD [address] [facility] [address] [place] [address] Clinical Informatics Physician Cardiology 03/28/19 documented as of this encounter
--- OUTSIDE RECORDS SUMMARY | 2025-05-11 13:34 | XMS_ITS | Encounter Summary ---
Author Organization [facility] Facility Care Team Providers Care Photographic Processor Name Role Phone Ryanne Uribe Primary Care Provider +1- [phone] He Elliott DO Unavailable [phone] Sultan Dino Higuera MD Unavailable [phone] Patrice Rivers MD Unavailable [phone] Jaycee Moeller MD Primary Care Provider Encounter Details Date Type Department Care Team (Latest Contact Info) Description 08/06/2017 Orders Only MMG CLINCONV ProviderLindsey MD [facility] [place] [address] Social History Tobacco Use Types Packs/Day Years Used Date Smoking Tobacco: Never Assessed Comments Unknown Sex and Gender Information Value Date Recorded Sex Assigned at Not on file Legal Sex Female 8:53 PM CAREER PROFESSIONAL Gender Identity Female 06/24/2019 11:05 AM CDT Sexual Orientation Choose not to disclose 2019 2:42 PM CDT documented as of this encounter Plan of Treatment Not on file documented as of this encounter Procedures Procedure Name Priority Date/Time Associated Diagnosis Comments SCAN - LABS 08/06/2017 12:00 AM CDT documented in this encounter Results * SCAN - LABS (08/06/2017 12:00 AM CDT) Narrative 08/06/2017 12:00 AM CDT Ordered by an unspecified provider. us Historical Provider Final Res ult documented in this encounter Visit Diagnoses Not on filedocumented in this encounter Care Teams Photographic Processor Relationship Specialty Start Date End Date Ryanne Uribe PA [address] [place] [address] PCP - General Internal Medicine 03/10/19 02/07/21 Jaycee Moeller MD [address] [place] [address] PCP - General Family Medicine 02/08/21 He Elliott DO [address] [place] [address] Consulting Physician Gastroenterology 03/28/19 Sultan Dino Higuera MD [address] [facility] [address] [address] Reed Or Wind Instrument Repairer Cardiology 03/28/19 Patrice Rivers MD [address] [facility] [address] [place] [address] Reed Or Wind Instrument Repairer Cardiology 03/28/19 documented as of this encounter
--- OUTSIDE RECORDS SUMMARY | 2025-05-11 13:34 | XMS_ITS | Encounter Summary ---
Author Organization [facility] Facility Care Team Providers Care Clam Bed Worker Name Role Phone Ryanne Uribe Primary Care Provider +1- [phone] He Elliott DO Unavailable [phone] Sultan Dino Higuera MD Unavailable [phone] Patrice Rivers MD Unavailable [phone] Jaycee Moeller MD Primary Care Provider Encounter Details Date Type Department Care Team (Latest Contact Info) Description 07/02/2017 Orders Only MMG CLINCONV ProviderLindsey MD [facility] [place] [address] Social History Tobacco Use Types Packs/Day Years Used Date Smoking Tobacco: Never Assessed Comments Unknown Sex and Gender Information Value Date Recorded Sex Assigned at Not on file Legal Sex Female 8:53 PM DERRICK BOAT OPERATOR Gender Identity Female 06/24/2019 11:05 AM CDT Sexual Orientation Choose not to disclose 2019 2:42 PM CDT documented as of this encounter Plan of Treatment Not on file documented as of this encounter Procedures Procedure Name Priority Date/Time Associated Diagnosis Comments SCAN - LABS 07/02/2017 12:00 AM CDT documented in this encounter Results * SCAN - LABS (07/02/2017 12:00 AM CDT) Narrative 07/02/2017 12:00 AM CDT Ordered by an unspecified provider. us Historical Provider Final Res ult documented in this encounter Visit Diagnoses Not on filedocumented in this encounter Care Teams Clam Bed Worker Relationship Specialty Start Date End Date Ryanne Uribe PA [address] [place] [address] PCP - General Internal Medicine 03/10/19 02/07/21 Jaycee Moeller MD [address] [place] [address] PCP - General Family Medicine 02/08/21 He Elliott DO [address] [place] [address] Consulting Physician Gastroenterology 03/28/19 Sultan Dino Higuera MD [address] [facility] [address] [address] [address] Commissioner Cardiology 03/28/19 Patrice Rivers MD [address] [facility] [address] [place] [address] Court Commissioner Cardiology 03/28/19 documented as of this encounter
--- OUTSIDE RECORDS SUMMARY | 2025-05-11 13:34 | XMS_ITS | Encounter Summary ---
Author Organization [facility] Facility Care Team Providers Care Medical Records Library Professor Name Role Phone Ryanne Uribe Primary Care Provider +1- [phone] He Elliott DO Unavailable [phone] Sultan Dino Higuera MD Unavailable [phone] Patrice Rivers MD Unavailable [phone] Jaycee Moeller MD Primary Care Provider Encounter Details Date Type Department Care Team (Latest Contact Info) Description 12/13/2013 Orders Only MMG CLINCONV ProviderLindsey MD [facility] [place] [address] Social History Tobacco Use Types Packs/Day Years Used Date Smoking Tobacco: Never Assessed Comments Unknown Sex and Gender Information Value Date Recorded Sex Assigned at Not on file Legal Sex Female 8:53 PM CUPOLA TENDER HELPER Gender Identity Female 06/24/2019 11:05 AM CDT [...] on filedocumented in this encounter Care Teams Medical Records Library Professor Relationship Specialty Start Date End Date Ryanne Uribe PA [address] [place] [address] PCP - General Internal Medicine 03/10/19 02/07/21 Jaycee Moeller MD [address] [place] [address] PCP - General Family Medicine 02/08/21 He Elliott DO [address] [place] [address] Consulting Physician Gastroenterology 03/28/19 Sultan Dino Higuera MD [address] [facility] [address] [place] [address] Psychiatric Tech Cardiology 03/28/19 Patrice Rivers MD [address] [facility] [address] [place] [address] Psychiatric Tech Cardiology 03/28/19 documented as of this encounter
--- OUTSIDE RECORDS SUMMARY | 2025-05-11 13:34 | XMS_ITS | Encounter Summary ---
Author Organization [facility] Facility Care Team Providers Care Aging Room Hand Name Role Phone Ryanne Uribe Primary Care Provider +1- [phone] He Elliott DO Unavailable [phone] Sultan Dino Higuera MD Unavailable [phone] Patrice Rivers MD Unavailable [phone] Jaycee Moeller MD Primary Care Provider Encounter Details Date Type Department Care Team (Latest Contact Info) Description 10/21/2017 Orders Only MMG CLINCONV ProviderLindsey MD [facility] [place] [address] Social History Tobacco Use Types Packs/Day Years Used Date Smoking Tobacco: Never Assessed Comments Unknown Sex and Gender Information Value Date Recorded Sex Assigned at Not on file Legal Sex Female 8:53 PM RAILROAD POLICE Gender Identity Female 06/24/2019 11:05 AM CDT Sexual Orientation Choose not to disclose 2019 2:42 PM CDT documented as of this encounter Plan of Treatment Not on file documented as of this encounter Procedures Procedure Name Priority Date/Time Associated Diagnosis Comments SCAN - LABS 10/22/2017 12:00 AM RAILROAD POLICE documented in this encounter Results * SCAN - LABS (10/22/2017 12:00 AM RAILROAD POLICE) Narrative 10/22/2017 12:00 AM RAILROAD POLICE Ordered by an unspecified provider. us Historical Provider Final Res ult documented in this encounter Visit Diagnoses Not on filedocumented in this encounter Care Teams Aging Room Hand Relationship Specialty Start Date End Date Ryanne Uribe PA [address] [place] [address] PCP - General Internal Medicine 03/10/19 02/07/21 Jaycee Moeller MD [address] [place] [address] PCP - General Family Medicine 02/08/21 He Elliott DO [address] [place] [address] Consulting Physician Gastroenterology 03/28/19 Sultan Dino Higuera MD [address] [facility] [address] [place] [address] Receiving Associate Store Cardiology 03/28/19 Patrice Rivers MD [address] [facility] [address] [place] [address] Receiving Associate Store Cardiology 03/28/19 documented as of this encounter
--- OUTSIDE RECORDS SUMMARY | 2025-05-11 13:34 | XMS_ITS | Encounter Summary ---
Author Organization [facility] Facility Care Team Providers Care Pediatric Care Coordinator Name Role Phone Ryanne Uribe Primary Care Provider +1- [phone] He Elliott DO Unavailable [phone] Sultan Dino Higuera MD Unavailable [phone] Patrice Rivers MD Unavailable [phone] Jaycee Moeller MD Primary Care Provider Encounter Details Date Type Department Care Team (Latest Contact Info) Description 03/20/2017 Orders Only MMG CLINCONV ProviderLindsey MD [facility] [place] [address] Social History Tobacco Use Types Packs/Day Years Used Date Smoking Tobacco: Never Assessed Comments Unknown Sex and Gender Information Value Date Recorded Sex Assigned at Not on file Legal Sex Female 8:53 PM THERAPIST Gender Identity Female 06/24/2019 11:05 AM CDT [...] on filedocumented in this encounter Care Teams Pediatric Care Coordinator Relationship Specialty Start Date End Date Ryanne Uribe PA [address] [place] [address] PCP - General Internal Medicine 03/10/19 02/07/21 Jaycee Moeller MD [address] [place] [address] PCP - General Family Medicine 02/08/21 He Elliott DO [address] [place] [address] Consulting Physician Gastroenterology 03/28/19 Sultan Dino Higuera MD [address] [facility] [address] [place] [address] Head Banquet Waiter/Waitress Cardiology 03/28/19 Patrice Rivers MD [address] [facility] [address] [place] [address] Head Banquet Waiter/Waitress Cardiology 03/28/19 documented as of this encounter
--- OUTSIDE RECORDS SUMMARY | 2025-05-11 13:34 | XMS_ITS | Encounter Summary ---
Author Organization [facility] Facility Care Team Providers Care District Wire Chief Name Role Phone Ryanne Uribe Primary Care Provider +1- [phone] He Elliott DO Unavailable [phone] Sultan Dino Higuera MD Unavailable [phone] Patrice Rivers MD Unavailable [phone] Jaycee Moeller MD Primary Care Provider Encounter Details Date Type Department Care Team (Latest Contact Info) Description 09/23/2018 Orders Only [facility]G CLINCONV ProviderLindsey MD [facility] [place] [address] Social History Tobacco Use Types Packs/Day Years Used Date Smoking Tobacco: Never Assessed Comments Unknown Sex and Gender Information Value Date Recorded Sex Assigned at Not on file Legal Sex Female 8:53 PM HISTORY TEACHER Gender Identity Female 06/24/2019 11:05 AM CDT Sexual Orientation Choose not to disclose 2019 2:42 PM CDT documented as of this encounter Plan of Treatment Not on file documented as of this encounter Procedures Procedure Name Priority Date/Time Associated Diagnosis Comments SCAN - LABS 09/24/2018 12:00 AM CDT documented in this encounter Results * SCAN - LABS (09/24/2018 12:00 AM CDT) Narrative 09/24/2018 12:00 AM CDT Ordered by an unspecified provider. us Historical Provider Final Res ult documented in this encounter Visit Diagnoses Not on filedocumented in this encounter Care Teams District Wire Chief Relationship Specialty Start Date End Date Ryanne Uribe PA [address] [place] [address] PCP - General Internal Medicine 03/10/19 02/07/21 Jaycee Moeller MD [address] [place] [address] PCP - General Family Medicine 02/08/21 He Elliott DO [address] [place] [address] Consulting Physician Gastroenterology 03/28/19 Sultan Dino Higuera MD [address] [facility] [address] [address] Roll Picker Cardiology 03/28/19 Patrice Rivers MD [address] [facility] [address] [place] [address] Roll Picker Cardiology 03/28/19 documented as of this encounter
--- OUTSIDE RECORDS SUMMARY | 2025-05-11 13:34 | XMS_ITS | Encounter Summary ---
Author Organization [facility] Facility Care Team Providers Care Membership Correspondent Name Role Phone Ryanne Uribe Primary Care Provider +1- [phone] He Elliott DO Unavailable [phone] Sultan Dino Higuera MD Unavailable [phone] Patrice Rivers MD Unavailable [phone] Jaycee Moeller MD Primary Care Provider Encounter Details Date Type Department Care Team (Latest Contact Info) Description 07/08/2018 Orders Only MMG CLINCONV ProviderLindsey MD [place] [address] Social History Tobacco Use Types Packs/Day Years Used Date Smoking Tobacco: Never Assessed Comments Unknown Sex and Gender Information Value Date Recorded Sex Assigned at Not on file 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 us Historical Provider Final Res ult documented in this encounter Visit Diagnoses Not on filedocumented in this encounter Care Teams Membership Correspondent Relationship Specialty Start Date End Date Ryanne Uribe PA [address] [place] [address] PCP - General Internal Medicine 03/10/19 02/07/21 Jaycee Moeller MD [address] [place] [address] PCP - General Family Medicine 02/08/21 He Elliott DO [address] [place] [address] Consulting Physician Gastroenterology 03/28/19 Sultan Dino Higuera MD [address] [facility] [address] [address] Pilot Boat Deckhand Cardiology 03/28/19 Patrice Rivers MD [address] [facility] [address] [place] [address] Pilot Boat Deckhand Cardiology 03/28/19 documented as of this encounter
--- OUTSIDE RECORDS SUMMARY | 2025-05-11 13:34 | XMS_ITS | Encounter Summary ---
Author Organization [facility] Facility Care Team Providers Care Job Molder Name Role Phone Ryanne Uribe Primary Care Provider +1- [phone] He Elliott DO Unavailable [phone] Sultan Dino Higuera MD Unavailable [phone] Patrice Rivers MD Unavailable [phone] Jaycee Moeller MD Primary Care Provider Encounter Details Date Type Department Care Team (Latest Contact Info) Description 05/02/2015 Orders Only [facility]G CLINCONV ProviderLindsey MD [facility] [place] [address] Social History Tobacco Use Types Packs/Day Years Used Date Smoking Tobacco: Never Assessed Comments Unknown Sex and Gender Information Value Date Recorded Sex Assigned at Not on file 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 Gender Identity Female 06/24/2019 11:05 AM [...] on filedocumented in this encounter Care Teams Job Molder Relationship Specialty Start Date End Date Ryanne Uribe PA [address] [place] [address] PCP - General Internal Medicine 03/10/19 02/07/21 Jaycee Moeller MD [address] [place] [address] PCP - General Family Medicine 02/08/21 He Elliott DO [address] [place] [address] Consulting Physician Gastroenterology 03/28/19 Sultan Dino Higuera MD [address] [facility] [address] [place] [address] Search Lead Cardiology 03/28/19 Patrice Rivers MD [address] [facility] [address] [place] [address] Search Lead Cardiology 03/28/19 documented as of this encounter
--- OUTSIDE RECORDS SUMMARY | 2025-05-11 13:34 | XMS_ITS | Continuity of Care Document ---
Author Organization [facility] Address [address] [place] [address] Phone Care Team Providers Care Food Service Associate Name Role Phone Stoney Dick DO Unavailable Unavailable Advance Directives Directive Yes / No Effective Date File Name No Information Encounters Encounter Description Practice Location Reason(s) For Visit Diagnoses Date Provider Providers [facility] [address], [place], [place], [id number], [place] tel:[phone] [facility] No Information Kapil Choi. [address] [place], [address], [place]. tel: [phone] Family History Family Member Type Diagnosis Age At Onset No Information Payers Payer name Insurance type Covered green party ID Authoriza tion(s) No Information Social History Type Description Quantity Date Captured Comments Sex Female Smoking Status No Information Chief Complaint And Reason For Visit No Information Reason For Referral Reason For Referral No Information History Of Present Illness Encounter Date Complaint History Of Prese nt Illness No Information Functional Status Date Functional Assessmen t No Information Instructions Date Instruction Additional Infor mation No Information Assessments Type Assessment Date No Information Patient Care Teams Name Effective Dates (start - stop) Status Members No Information
--- OUTSIDE RECORDS SUMMARY | 2025-05-11 13:34 | XMS_ITS | Encounter Summary ---
Author Organization [facility] Facility Care Team Providers Care Disaster Recovery Coordinator Name Role Phone Ryanne Uribe Primary Care Provider +1- [phone] He Elliott DO Unavailable [phone] Sultan Dino Higuera MD Unavailable [phone] Patrice Rivers MD Unavailable [phone] Jaycee Moeller MD Primary Care Provider Encounter Details Date Type Department Care Team (Latest Contact Info) Description 06/03/2017 Orders Only [facility] CLINCONV ProviderLindsey MD [facility] [place] [address] Social History Tobacco Use Types Packs/Day Years Used Date Smoking Tobacco: Never Assessed Comments Unknown Sex and Gender Information Value Date Recorded Sex Assigned at Not on file 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 us Historical Provider Final Res ult documented in this encounter Visit Diagnoses Not on filedocumented in this encounter Care Teams Disaster Recovery Coordinator Relationship Specialty Start Date End Date Ryanne Uribe PA [address] [place] [address] PCP - General Internal Medicine 03/10/19 02/07/21 Jaycee Moeller MD [address] [place] [address] PCP - General Family Medicine 02/08/21 He Elliott DO [address] [place] [address] Consulting Physician Gastroenterology 03/28/19 Sultan Dino Higuera MD [address] [facility] [address] [address] Forgeman Helper Cardiology 03/28/19 Patrice Rivers MD [address] [facility] [address] [place] [address] Forgeman Helper Cardiology 03/28/19 documented as of this encounter
--- OUTSIDE RECORDS SUMMARY | 2025-05-11 13:34 | XMS_ITS | Encounter Summary ---
Author Organization [facility] Facility Care Team Providers Care Marketing Database Coordinator Name Role Phone Ryanne Uribe Primary Care Provider +1- [phone] He Elliott DO Unavailable [phone] Sultan Dino Higuera MD Unavailable [phone] Patrice Rivers MD Unavailable [phone] Jaycee Moeller MD Primary Care Provider Encounter Details Date Type Department Care Team (Latest Contact Info) Description 10/15/2017 Orders Only [facility] CLINCONV ProviderLindsey MD [facility] [place] [address] Social History Tobacco Use Types Packs/Day Years Used Date Smoking Tobacco: Never Assessed Comments Unknown Sex and Gender Information Value Date Recorded Sex Assigned at Not on file 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 us Historical Provider [facility] JARON RODRIGUEZ Final Result documented in this encounter Visit Diagnoses Not on filedocumented in this encounter Care Teams Marketing Database Coordinator Relationship Specialty Start Date End Date Ryanne Uribe PA [address] [place] [address] PCP - General Internal Medicine 03/10/19 02/07/21 Jaycee Moeller MD [address] [place] [address] PCP - General Family Medicine 02/08/21 He Elliott DO [address] [place] [address] Consulting Physician Gastroenterology 03/28/19 Sultan Dino Higuera MD [address] [facility] [address] [place] [address] Health Informatics Advisor Cardiology 03/28/19 Patrice Rivers MD [address] [facility] [address] [place] [address] Health Informatics Advisor Cardiology 03/28/19 documented as of this encounter
--- OUTSIDE RECORDS SUMMARY | 2025-05-11 13:34 | XMS_ITS | Encounter Summary ---
Author Organization [facility] Facility Care Team Providers Care Potato Pancake Frier Name Role Phone Ryanne Uribe Primary Care Provider +1- [phone] He Elliott DO Unavailable [phone] Sultan Dino Higuera MD Unavailable [phone] Patrice Rivers MD Unavailable [phone] Jaycee Moeller MD Primary Care Provider Encounter Details Date Type Department Care Team (Latest Contact Info) Description 06/18/2017 Orders Only [facility]G CLINCONV ProviderLindsey MD [facility] [place] [address] Social History Tobacco Use Types Packs/Day Years Used Date Smoking Tobacco: Never Assessed Comments Unknown Sex and Gender Information Value Date Recorded Sex Assigned at Not on file 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 us Historical Provider Final Res ult documented in this encounter Visit Diagnoses Not on filedocumented in this encounter Care Teams Potato Pancake Frier Relationship Specialty Start Date End Date Ryanne Uribe PA [address] [place] [address] PCP - General Internal Medicine 03/10/19 02/07/21 Jaycee Moeller MD [address] [place] [address] PCP - General Family Medicine 02/08/21 He Elliott DO [address] [place] [address] Consulting Physician Gastroenterology 03/28/19 Sultan Dino Higuera MD [address] [facility] [address] [address] Leasing Sales Consultant Cardiology 03/28/19 Patrice Rivers MD [address] [facility] [address] [place] [address] Leasing Sales Consultant Cardiology 03/28/19 documented as of this encounter
--- OUTSIDE RECORDS SUMMARY | 2025-05-11 13:34 | XMS_ITS | Encounter Summary ---
Author Organization [facility] Facility Care Team Providers Care Performance Management Consultant Name Role Phone Ryanne Uribe Primary Care Provider +1- [phone] He Elliott DO Unavailable [phone] Sultan Dino Higuera MD Unavailable [phone] Patrice Rivers MD Unavailable [phone] Jaycee Moeller MD Primary Care Provider Encounter Details Date Type Department Care Team (Latest Contact Info) Description 10/05/2018 Orders Only [facility] CLINCONV ProviderLindsey MD [facility] [place] [address] Social History Tobacco Use Types Packs/Day Years Used Date Smoking Tobacco: Never Assessed Comments Unknown Sex and Gender Information Value Date Recorded Sex Assigned at Not on file Legal Sex Female 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 us Historical Provider Final Res ult documented in this encounter Visit Diagnoses Not on filedocumented in this encounter Care Teams Performance Management Consultant Relationship Specialty Start Date End Date Ryanne Uribe PA [address] [place] [address] PCP - General Internal Medicine 03/10/19 02/07/21 Jaycee Moeller MD [address] [place] [address] PCP - General Family Medicine 02/08/21 He Elliott DO [address] [place] [address] Consulting Physician Gastroenterology 03/28/19 Sultan Dino Higuera MD [address] [facility] [address] [place] [address] Box Machine Operator Cardiology 03/28/19 Patrice Rivers MD [address] [facility] [address] [place] [address] Box Machine Operator Cardiology 03/28/19 documented as of this encounter
--- OUTSIDE RECORDS SUMMARY | 2025-05-11 13:34 | XMS_ITS | Encounter Summary ---
Author Organization [facility] Facility Care Team Providers Care Medical Education Coordinator Name Role Phone Ryanne Uribe Primary Care Provider +1- [phone] He Elliott DO Unavailable [phone] Sultan Dino Higuera MD Unavailable [phone] Patrice Rivers MD Unavailable [phone] Jaycee Moeller MD Primary Care Provider Encounter Details Date Type Department Care Team (Latest Contact Info) Description 01/26/2019 Orders Only [facility]G CLINCONV ProviderLindsey MD [facility] [place] [address] Social History Tobacco Use Types Packs/Day Years Used Date Smoking Tobacco: Never Assessed Comments Unknown Sex and Gender Information Value Date Recorded Sex Assigned at Not on file 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 us Historical Provider Final Res ult documented in this encounter Visit Diagnoses Not on filedocumented in this encounter Care Teams Medical Education Coordinator Relationship Specialty Start Date End Date Ryanne Uribe PA [address] [place] [address] PCP - General Internal Medicine 03/10/19 02/07/21 Jaycee Moeller MD [address] [place] [address] PCP - General Family Medicine 02/08/21 He Elliott DO [address] [place] [address] Consulting Physician Gastroenterology 03/28/19 Sultan Dino Higuera MD [address] [facility] [address] [place] [address] Recreation Technician Cardiology 03/28/19 Patrice Rivers MD [address] [facility] [address] [place] [address] Recreation Technician Cardiology 03/28/19 documented as of this encounter
--- OUTSIDE RECORDS SUMMARY | 2025-05-11 13:34 | XMS_ITS | Encounter Summary ---
Author Organization [facility] Facility Care Team Providers Care Radio News Anchor Name Role Phone Ryanne Uribe Primary Care Provider +1- [phone] He Elliott DO Unavailable [phone] Sultan Dino Higuera MD Unavailable [phone] Patrice Rivers MD Unavailable [phone] Jaycee Moeller MD Primary Care Provider Encounter Details Date Type Department Care Team (Latest Contact Info) Description 06/12/2018 Orders Only MMG CLINCONV ProviderLindsey MD [facility] [place] [address] Social History Tobacco Use Types Packs/Day Years Used Date Smoking Tobacco: Never Assessed Comments Unknown Sex and Gender Information Value Date Recorded Sex Assigned at Not on file 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 us Historical Provider Final Res ult documented in this encounter Visit Diagnoses Not on filedocumented in this encounter Care Teams Radio News Anchor Relationship Specialty Start Date End Date Ryanne Uribe PA [address] [place] [address] PCP - General Internal Medicine 03/10/19 02/07/21 Jaycee Moeller MD [address] [place] [address] PCP - General Family Medicine 02/08/21 He Elliott DO [address] [place] [address] Consulting Physician Gastroenterology 03/28/19 Sultan Dino Higuera MD [address] [facility] [address] [address] Scabbler Cardiology 03/28/19 Patrice Rivers MD [address] [facility] [address] [place] [address] Scabbler Cardiology 03/28/19 documented as of this encounter
--- OUTSIDE RECORDS SUMMARY | 2025-05-11 13:34 | XMS_ITS | Encounter Summary ---
Author Organization [facility] Facility Care Team Providers Care Manager Payment Name Role Phone Ryanne Uribe Primary Care Provider +1- [phone] He Elliott DO Unavailable [phone] Sultan Dino Higuera MD Unavailable [phone] Patrice Rivers MD Unavailable [phone] Jaycee Moeller MD Primary Care Provider Encounter Details Date Type Department Care Team (Latest Contact Info) Description 11/03/2018 Orders Only [facility]G CLINCONV ProviderLindsey MD [facility] [place] [address] Social History Tobacco Use Types Packs/Day Years Used Date Smoking Tobacco: Never Assessed Comments Unknown Sex and Gender Information Value Date Recorded Sex Assigned at Not on file 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 us Historical Provider Final Res ult documented in this encounter Visit Diagnoses Not on filedocumented in this encounter Care Teams Manager Payment Relationship Specialty Start Date End Date Ryanne Uribe PA [address] [place] [address] PCP - General Internal Medicine 03/10/19 02/07/21 Jaycee Moeller MD [address] [place] [address] PCP - General Family Medicine 02/08/21 He Elliott DO [address] [place] [address] Consulting Physician Gastroenterology 03/28/19 Sultan Dino Higuera MD [address] [facility] [address] [place] [address] Oxygen Therapy Teacher Cardiology 03/28/19 Patrice Rivers MD [address] [facility] [address] [place] [address] Oxygen Therapy Teacher Cardiology 03/28/19 documented as of this encounter
== END 2025-05-11 11:48 | disposition home or self-care (01) ==
PROVIDERS: PCP Family Medicine; Visit Provider Urology
DX: N20.0 Calculus of kidney (principal)
CPT/HCPCS: 74018